=== PATIENT | male | born 1960 | race Hispanic/Latino ===

== ENCOUNTER 2017-06-11 23:19 | Inpatient (IN) | payer OTHER ==
[2017-06-11 23:23] VITALS: BMI 34.1
--- NOTE | 2017-06-11 23:47 | ED PDOC ---
Arrival/HPI - General Time Seen by Provider: 06/11/17 23:26 Historian: Patient - History of Present Illness Narrative History of Present Illness (Text): 06/11/17 23:45 56 year old male, whose past medical history includes bronchitis, presents to the emergency department complaining of worsening shortness of breath associated with a cough, chest pain, and headaches for the past 2 days. Patient reports these are similar symptoms to his past bronchitis diagnosis. He states he was coming home from work when these symptoms began to develop. Patient reports when he coughs associated symptoms include chest pain, shortness of breath, and frontal headaches. He states he has taken Tylenol and Nyquil with no relief. He states the headache started two days ago and have worsened but no sinus congestion. Patient denies any current medication, fever, chills, chest pain, nausea, vomiting, diarrhea, urinary symptoms, back pain, neck pain, dizziness, or any other complaints. PMD: Dr. Hart Time/Duration: Other (2 days) Symptom Onset: Gradual Symptom Course: Worsening Activities at Onset: Light Context: Home Past Medical History - Provider Review Nursing Documentation Reviewed: Yes Family/Social History - Physician Review Nursing Documentation Reviewed: Yes Family/Social History: No Known Family HX Allergies/Home Meds Allergies/Adverse Reactions: Allergies No Known Allergies Allergy (Verified 06/11/17 23:23) Home Medications: Home Meds Medication Instructions Recorded Confirmed No Known Home Med 06/11/17 06/11/17 Review of Systems - Physician Review All systems were reviewed & negative as marked: Yes - Review of Systems Constitutional: Fatigue. absent: Fevers, Other (Chills) ENT: absent: Sinus Congestion Respiratory: SOB, Cough Cardiovascular: Chest Pain Gastrointestinal: absent: Diarrhea, Nausea, Vomiting Genitourinary Male: absent: Dysuria, Frequency, Hematuria Musculoskeletal: absent: Back Pain, Neck Pain Neurological: Headache. absent: Dizziness, Focal Weakness Physical Exam Vital Signs Reviewed: Yes Vital Signs Temp Pulse Resp BP Pulse Ox 06/12/17 00:42 100.8 F H 86 19 132/69 99 06/12/17 00:20 101.5 F H 06/11/17 23:35 101.5 F H 96 H 18 121/83 96 06/11/17 23:30 21 96 Temperature: Febrile Blood Pressure: Normal Pulse: Tachycardic Respiratory Rate: Tachypneic (RR of 21) Appearance: Positive for: Ill-Appearing, Other (morbidly obese) Pain Distress: None Mental Status: Positive for: Alert and Oriented X 3 - Systems Exam Head: Present: Atraumatic, Normocephalic Pupils: Present: PERRL Conjunctiva: Present: Normal Mouth: Present: Moist Mucous Membranes Pharnyx: Present: Normal. No: ERYTHEMA, EXUDATE Neck: Present: Normal Range of Motion. No: MIDLINE TENDERNESS Respiratory/Chest: Present: Clear to Auscultation, Decreased Breath Sounds ( Diminished breath sounds on the bases (L>R)). No: Respiratory Distress, Accessory Muscle Use Cardiovascular: Present: Regular Rate and Rhythm, Normal S1, S2. No: Murmurs Abdomen: Present: Normal Bowel Sounds. No: Tenderness, Distention, Peritoneal Signs Back: Present: Normal Inspection Upper Extremity: Present: Normal Inspection. No: Cyanosis, Edema Lower Extremity: Present: Normal Inspection. No: Edema Neurological: Present: GCS=15, CN II-XII Intact, Speech Normal Skin: Present: Warm, Normal Color, Diaphoretic. No: Rashes Psychiatric: Present: Alert, Oriented x 3, Normal Insight, Normal Concentration Medical Decision Making ED Course and Treatment: 06/11/17 23:45 Impression: 56 year old male presents complaining of similar past symptoms of bronchitis. Symptoms include coughing associated with shortness of breath, chest pain, and frontal headache. Differential: pneumonia vs bronchitis Plan: -- VBG -- CT Brain w/o Contrast -- CT Sinuses w/o contrast -- Labs -- Chest X-ray Two Views -- Atrovent -- Robitussin -- SOLU-Medrol -- IV Fluids -- Tylenol -- Xopenex -- Blood Culture -- Urine Culture -- Urinalysis -- Reassess and disposition Progress Notes: 06/12/17 00:17 Code Sepsis called. Patient's Lactate level showed 3.3 with 2 SIRS criteria ( fever and RR > 20) 06/12/17 00:19 CXR Impression: As read by me, possible retrocardiac infiltrate. EXAM: CT Head Without Intravenous Contrast Dictated and Authenticated by: Vargas Garcia MD 06/12/2017 12:24 AM IMPRESSION: 1. No acute intracranial abnormality. 2. See sinus CT report for additional details. 3. Incidental/non-acute findings are described above. EXAM: CT Maxillofacial Sinuses Without Intravenous Contrast Dictated and Authenticated by: Vargas Garcia MD 06/12/2017 12:27 AM IMPRESSION: 1. No acute findings. 2. Non-acute findings are described above 06/12/17 00:29 Patient with fever and tachypnea with lactic acidosis, concerning for sepsis. CXR as noted with possible pneumonia. Patient started on maxipime and code sepsis protocol followed for IVF. Given lactic acidosis with fever, will admit for iv antibiotics and follow blood cultures. Case discussed with Dr. Gomes who is aware and agrees with the plan. Accepts patient onto her service. Patient will be admitted to med-surg for Pneumonia. Will add zithromax for atypical coverage. - Lab Interpretations Lab Results: 06/11/17 23:30 06/11/17 23:30 Lab Results 06/11/17 23:30: Influenza Typ A,B (EIA) Negative for flu a/b 06/11/17 23:30: Sodium 138, Chloride 99, Potassium 4.3, Carbon Dioxide 28, Anion Gap 15, BUN 19, Creatinine 1.0, Est GFR ( Amer) > 60, Est GFR (Non- Af Amer) > 60, Random Glucose 153 H, Calcium 9.1, Phosphorus 3.2, Magnesium 1.9 , Total Bilirubin 1.1, AST 66 H, ALT 74 H, Alkaline Phosphatase 63, Lactate Dehydrogenase 865 H, Total Creatine Kinase 79, Troponin I 0.01, NT-Pro-B Natriuret Pep 33.2, Total Protein 7.7, Albumin 4.2, Globulin 3.5, Albumin/ Globulin Ratio 1.2, Lipase 93 06/11/17 23:30: pO2 48, VBG pH 7.33, VBG pCO2 51.0, VBG HCO3 26.9, VBG Total CO2 28.5 H, VBG O2 Sat (Calc) 85.3 H, VBG Base Excess 0.2, VBG Potassium 3.9, Sodium 137.0, Chloride 101.0, Glucose 159 H, Lactate 3.3 H, FiO2 21.0, Venous Blood Potassium 3.9 06/11/17 23:30: PT 14.8 H, INR 1.35 H, APTT 32.4 06/11/17 23:30: WBC 6.3, RBC 4.96, Hgb 15.8, Hct 45.4, MCV 91.5, MCH 31.9, MCHC 34.8, RDW 13.4, Plt Count 144, MPV 10.9, Gran % 71.3 H, Lymph % (Auto) 18.6 L, [place] % (Auto) 9.5 H, Eos % (Auto) 0.0 L, Baso % (Auto) 0.6, Gran # 4.51, Lymph # 1.2, [place] # 0.6, Eos # 0.0, Baso # 0.04 I have reviewed the lab results: Yes - RAD Interpretation Radiology Orders: 06/11/17 23:47 CHEST TWO VIEWS (PA/LAT) [RAD] Stat 06/11/17 23:48 Brain [HEAD W/O CONTRAST] [CT] Stat SINUSES W/O CONTRAST [CT] Stat - EKG Interpretation EKG Interpretation (Text): 06/12/17 01:01 NSR @ 98 with PACs; normal intervals; left axis deviation; no ST/T changes. Interpreted by ED Physician: Yes Type: 12 lead EKG Comparison: No previous EKG avail. - Medication Orders Current Medication Orders: Sodium Chloride (Sodium Chloride 0.9%) 3,240 mls @ 1,000 mls/hr IV .Q3H15M STA Stop: 06/12/17 03:02 Last Admin: 06/12/17 00:25 Dose: 1,000 mls/hr eMAR Start Stop Document 06/12/17 00:25 RD (Rec: 06/12/17 00:33 RD [id number]) Intravenous Solution Start Date 06/12/17 Start Time 00:25 End Date 06/12/17 End time 03:40 Total Infusion Time 195 Cefepime HCl (Maxipime 2gm) 2 gm in 100 mls @ 100 mls/hr IVPB STAT STA PRN Reason: Protocol Stop: 06/12/17 01:23 Last Admin: 06/12/17 00:38 Dose: 100 mls/hr eMAR Start Stop Document 06/12/17 00:38 RD (Rec: 06/12/17 00:38 RD [id number]) Intravenous Solution Start Date 06/12/17 Start Time 00:38 End Date 06/12/17 End time 01:38 Total Infusion Time 60 Azithromycin (Zithromax 500mg In Ns) 500 mg in 250 mls @ 167 mls/hr IVPB STAT STA PRN Reason: Protocol Stop: 06/12/17 02:01 Discontinued Medications Acetaminophen (Tylenol 325mg Tab) 975 mg PO STAT STA Stop: 06/11/17 23:50 Last Admin: 06/12/17 00:20 Dose: 975 mg MAR Pain/Vitals Document 06/12/17 00:20 RD (Rec: 06/12/17 00:29 RD [id number]) Vitals Temperature (97.6 F-99.6 F) 101.5 F Temperature Source Oral Guaifenesin (Robitussin) 600 mg PO ONCE STA Stop: 06/11/17 23:50 Last Admin: 06/12/17 00:20 Dose: 600 mg Sodium Chloride (Sodium Chloride 0.9%) 2,000 mls @ 1,000 mls/hr IV .Q2H STA Stop: 06/12/17 01:47 Ipratropium [place] (Atrovent) 0.5 mg IH STAT STA Stop: 06/11/17 23:50 Last Admin: 06/12/17 00:20 Dose: 0.5 mg Levalbuterol HCl (Xopenex) 1.25 mg IH STAT STA Stop: 06/11/17 23:50 Last Admin: 06/12/17 00:20 Dose: 1.25 mg Levalbuterol HCl (Xopenex) 1.25 mg IH STAT STA Stop: 06/11/17 23:50 Last Admin: 06/12/17 00:39 Dose: 1.25 mg Methylprednisolone (Solu-Medrol) 125 mg IVP STAT STA Stop: 06/11/17 23:50 Last Admin: 06/12/17 00:20 Dose: 125 mg IVP Administration Document 06/12/17 00:20 RD (Rec: 06/12/17 00:31 RD [id number]) Charges for Administration # of IVP Administrations 1 - Scribe Statement The provider has reviewed the documentation as recorded by the Scribe Keshawn Wells Provider Scribe Attestation: All medical record entries made by the Scribe were at my direction and personally dictated by me. I have reviewed the chart and agree that the record accurately reflects my personal performance of the history, physical exam, medical decision making, and the department course for this patient. I have also personally directed, reviewed, and agree with the discharge instructions and disposition. Disposition/Present on Arrival - Present on Arrival Any Indicators Present on Arrival: No - Disposition Have Diagnosis and Disposition been Completed?: Yes Diagnosis: Pneumonia, Sepsis Disposition: HOSPITALIZED Disposition Time: 12:30 Patient Plan: Admission Condition: FAIR Discharge Instructions (ExitCare): Sepsis (ED)
[2017-06-11] MEDS ORDERED: Sodium Chloride 0.9% 2,000 ML IV STA (23:48)
[2017-06-11] MEDS ORDERED: guaiFENesin 200 mg/10 ml Syrup UD PO STA (23:49)
[2017-06-11] MEDS ORDERED: Ipratropium 0.02% Inhal Soln (0.5 mg/2.5 ml) UD IH STA (23:49)
[2017-06-11] MEDS ORDERED: Levalbuterol 1.25 MG/3 ML Inhal Soln UD IH STA ×2 (23:49)
[2017-06-12 00:03] LABS: BASO # 0.04 K/mm3 (0.0-2.0); BASO % 0.6 % (0.0-3.0); GRAN # 4.51 (1.4-6.5); GRAN % 71.3 % (50.0-68.0); HEMATOCRIT 45.4 % (42.0-52.0); LYMPH # 1.2 (1.2-3.4); LYMPH % 18.6 % (22.0-35.0); MEAN CELL VOLUME 91.5 fl (80.0-105.0); MEAN CORPUSCULAR HEMOGLOBIN 31.9 pg (25.0-35.0); MEAN CORPUSCULAR HGB CONC 34.8 g/dl (31.0-37.0); MEAN PLATELET VOLUME 10.9 fl (7.0-11.0); MONO # 0.6 (0.1-0.6); MONO % 9.5 % (1.0-6.0); RED CELL DISTRIBUTION WIDTH 13.4 % (11.5-14.5); WHITE BLOOD COUNT 6.3 10^3/ul (4.5-11.0)
[2017-06-12 00:12] LABS: VENOUS BLOOD GAS BASE EXCESS 0.2 mmol/L (0.0-2.0); VENOUS BLOOD PH 7.33 (7.32-7.43)
[2017-06-12 00:13] LABS: INR 1.35 (0.93-1.08); PARTIAL THROMBOPLASTIN TIME 32.4 Seconds (25.1-36.5)
[2017-06-12] MEDS ORDERED: SODIUM CHLORIDE 0.9% IV STA (00:17)
[2017-06-12 00:22] LABS: ALB/GLOB RATIO 1.2 (1.1-1.8); ALKALINE PHOSPHATASE 63 U/L (38-126); ALT/SGPT 74 U/L (7-56); AST/SGOT 66 U/L (17-59); BILIRUBIN,TOTAL 1.1 mg/dL (0.2-1.3); BLOOD UREA NITROGEN 19 mg/dL (7-21); CALCIUM 9.1 mg/dL (8.4-10.5); CARBON DIOXIDE 28 mmol/L (21-33); CHLORIDE 99 mmol/L (98-107); GFR AFRICAN-AMERICAN > 60; GLUCOSE,RANDOM 153 mg/dL (70-110); LIPASE 93 U/L (23-300); MAGNESIUM 1.9 mg/dL (1.7-2.2); PHOSPHOROUS 3.2 mg/dL (2.5-4.5); POTASSIUM 4.3 mmol/L (3.6-5.0); SODIUM 138 mmol/L (132-148); TOTAL PROTEIN 7.7 g/dL (5.8-8.3)
[2017-06-12] MEDS ORDERED: Cefepime IV 2 gm in NS 2 GM/100 ML BAG IVPB STA (00:24)
--- NOTE | 2017-06-12 00:25 | CT ---
EXAM: CT Head Without Intravenous Contrast CLINICAL HISTORY: 56 years old, male; Pain; Headache TECHNIQUE: Axial computed tomography images of the head/brain without intravenous contrast. All CT scans at this facility use one or more dose reduction techniques, viz.: automated exposure control; ma/kV adjustment per patient size (including targeted exams where dose is matched to indication; i.e. head); or iterative reconstruction technique. COMPARISON: No relevant prior studies available. FINDINGS: Brain: Mild atrophy. No intracranial hemorrhage. No mass. No definite edema. Ventricles: No hydrocephalus. Bones/joints: No calvarial fracture. Mastoid air cells: No mastoid effusion. IMPRESSION: 1. No acute intracranial abnormality. 2. See sinus CT report for additional details. 3. Incidental/non-acute findings are described above.
[2017-06-12 00:27] LABS: TROPONIN I 0.01 ng/mL
--- NOTE | 2017-06-12 00:28 | CT ---
EXAM: CT Maxillofacial Sinuses Without Intravenous Contrast CLINICAL HISTORY: 56 years old, male; Pain; Headache; Additional info: Headache, fever TECHNIQUE: Computed tomography images of the maxillofacial sinuses without intravenous contrast. All CT scans at this facility use one or more dose reduction techniques, viz.: automated exposure control; ma/kV adjustment per patient size (including targeted exams where dose is matched to indication; i.e. head); or iterative reconstruction technique. Coronal and sagittal reformatted images were created and reviewed. COMPARISON: No relevant prior studies available. FINDINGS: Maxillary sinuses: Minimal mucosal thickening. No air-fluid levels. Sphenoid sinuses: Unremarkable. No air-fluid levels. Frontal sinuses: Unremarkable. No air-fluid levels. Ethmoid air cells: Minimal to mild mucosal thickening. No air-fluid levels. Nasal cavity/septum: Septal deviation to RIGHT. Bones/joints: No acute fracture. Soft tissues: Dermal calcifications. Orbits: Unremarkable as visualized. IMPRESSION: 1.No acute findings. 2.Non-acute findings are described above.
[2017-06-12] MEDS ORDERED: Azithromycin 500MG/NS 250ml 500 MG/250 ML BAG IVPB STA (00:32)
[2017-06-12 03:00] LABS: VENOUS BLOOD GAS BASE EXCESS -0.3 mmol/L (0.0-2.0)
--- NOTE | 2017-06-12 08:55 | RAD ---
HISTORY: fever, cough COMPARISON: 07/09/2013 TECHNIQUE: Chest PA and lateral FINDINGS: LUNGS: Mild vascular congestion. No definite infiltrate PLEURA: No significant pleural effusion identified. No pneumothorax apparent. CARDIOVASCULAR: Normal. OSSEOUS STRUCTURES: No significant abnormalities. VISUALIZED UPPER ABDOMEN: Normal. OTHER FINDINGS: None. IMPRESSION: No definite infiltrate
[2017-06-12 09:02] LABS: PH,URINE 5.5 (4.7-8.0); URINE BILIRUBIN NEGATIVE (NEGATIVE); URINE BLOOD NEGATIVE (NEGATIVE); URINE GLUCOSE (UA) NEGATIVE (NEGATIVE); URINE KETONE 15 mg/dL (NEGATIVE); URINE LEUKOCYTE ESTERASE NEGATIVE Leu/uL (NEGATIVE); URINE PROTEIN TRACE mg/dL (<30 mg/dL)
[2017-06-12 09:13] LABS: URINE APPEARANCE CLEAR (CLEAR); URINE COLOR YELLOW (YELLOW)
[2017-06-12 09:18] LABS: URINE RBC 0 - 2 /hpf (0-2); URINE WBC 0 - 2 /hpf (0-6)
[2017-06-12] MEDS: cefTRIAXone 1 gm 1 GM/100 ML BAG IVPB SCH (11:44)
[2017-06-12] MEDS: Azithromycin 500MG/NS 250ml 500 MG/250 ML BAG IVPB SCH (11:45)
[2017-06-12] MEDS: Albuterol-Ipratrop 3 mg / 0.5 (3 ml) UD IH SCH ×2 (13:35→20:01)
--- NOTE | 2017-06-12 16:57 | CT ---
PROCEDURE: CT Chest without contrast HISTORY: sob COMPARISON: None. TECHNIQUE: Contiguous axial images were obtained through the chest without intravenous contrast enhancement. Sagittal and coronal reconstructions were performed. Radiation dose (DLP): 771.01 mGy-cm. This CT exam was performed using one or more of the following dose reduction techniques: Automated exposure control, adjustment of the mA and/or kV according to patient size, and/or use of iterative reconstruction technique. FINDINGS: LUNGS: Clear lungs. Visualized airway clear. MEDIASTINUM: Unremarkable thoracic aorta. No aneurysm. Normal sized heart. Main pulmonary artery unremarkable. No vascular congestion. No lymphadenopathy. PLEURA: No pleural fluid. No pneumothorax. BONES: No fracture. No destructive lesion. UPPER ABDOMEN: Grossly unremarkable. OTHER FINDINGS: None. IMPRESSION: No evidence of pneumonia or mass lesion in the lungs.
[2017-06-12] MEDS: Apap-Butalbital-Caffeine 325-50-40mg Tab PO PRN (19:32)
[2017-06-13] MEDS: Albuterol-Ipratrop 3 mg / 0.5 (3 ml) UD IH SCH ×4 (01:10→20:25)
[2017-06-13] MEDS: Promethazine/Cod 6.25mg-10mg/5ml Syr UD PO PRN ×3 (05:16→17:41)
[2017-06-13] MEDS: Apap-Butalbital-Caffeine 325-50-40mg Tab PO PRN ×2 (05:16→16:50)
[2017-06-13] MEDS: Pantoprazole 40 mg EC Tab PO SCH (05:41)
--- NOTE | 2017-06-13 09:35 | CARD ---
APPROVED REPORT EKG Measurement Heart [id number] <Conclusion> Sinus rhythm with premature atrial complexes Left axis deviation RVCD No change
[2017-06-13] MEDS: cefTRIAXone 1 gm 1 GM/100 ML BAG IVPB SCH (10:16)
--- NOTE | 2017-06-13 11:03 | CP.PCM.CON ---
History of Present Illness - History of Present Illness History of Present Illness: General Surgery - Dr Salazar 56 yo M w hx of bronchitis, presented to ED yesterday w/ fevers, cough, SOB and chest pain x3days. Pt states the symptoms are very similar to previous episode of bronchitis last year. He was admitted to the hospital and started on IV Abx. Surgery was consulted for a sebaceous cyst. Pt. states he noticed the cyst on the lower back a few weeks ago. He states that it was very large at the time and "ruptured" but that since then it has become enlarged again. He denies any further drainage from the area or any other symptoms related to the cyst. On ROS Pt admits to mild Nausea, Fevers, Chills, SOB, Chest pain, Cough, Headache. He denies any Vomiting, Diarrhea, Constipation, Dysuria, Hematuria, Abdominal pain. PMH: bronchitis PSH: Left knee surgey Former smoker NKDA Review of Systems - Review of Systems All systems: reviewed and no additional remarkable complaints except (as per HPI ) Past Patient History - Past Social History Smoking Status: Former Smoker - CARDIAC Hx Cardiac Disorders: No - PULMONARY Hx Bronchitis: Yes - NEUROLOGICAL Hx Neurological Disorder: No - HEENT Hx HEENT Problems: No - RENAL Hx Chronic Kidney Disease: No - ENDOCRINE/METABOLIC Hx Endocrine Disorders: No - HEMATOLOGICAL/ONCOLOGICAL Hx Blood Disorders: No - INTEGUMENTARY Hx Dermatological Problems: No - MUSCULOSKELETAL/RHEUMATOLOGICAL Hx Falls: No Other/Comment: Left Knee Replacement - GASTROINTESTINAL Hx Gastrointestinal Disorders: No - GENITOURINARY/GYNECOLOGICAL Hx Genitourinary Disorders: No - PSYCHIATRIC Hx Psychophysiologic Disorder: No Hx Substance Use: No - SURGICAL HISTORY Hx Joint Replacement: Yes (Left Knee) - ANESTHESIA Hx Anesthesia: No Meds Allergies/Adverse Reactions: Allergies Allergy/AdvReac Type Severity Reaction Status Date / Time No Known Allergies Allergy Verified 06/11/17 23:23 - Medications Medications: Current Medications Acetaminophen (Tylenol 325mg Tab) 650 mg PO Q4H PRN PRN Reason: Fever >100.4 F Last Admin: 06/13/17 10:51 Dose: 650 mg Acetaminophen/Butalbital/Caffeine (Fioricet) 2 tab PO Q6H PRN PRN Reason: Headache Last Admin: 06/13/17 05:16 Dose: 2 tab Albuterol/Ipratropium (Duoneb 3 Mg/0.5 Mg (3 Ml) Ud) 3 ml IH [id number] [facility] Last Admin: 06/13/17 07:09 Dose: 3 ml Ceftriaxone Sodium (Rocephin 1 Gram Ivpb) 1 gm in 100 mls @ 100 mls/hr IVPB DAILY FRED PRN Reason: Protocol Last Admin: 06/13/17 10:16 Dose: 100 mls/hr Azithromycin (Zithromax 500mg In Ns) 500 mg in 250 mls @ 167 mls/hr IVPB DAILY FRED PRN Reason: Protocol Last Admin: 06/12/17 11:45 Dose: 167 mls/hr Ondansetron HCl (Zofran Inj) 4 mg IVP Q6H PRN PRN Reason: Nausea/Vomiting Pantoprazole Sodium (Protonix Ec Tab) 40 mg PO 0630 [facility] Last Admin: 06/13/17 05:41 Dose: 40 mg Promethazine HCl/Codeine (Phenergan/Codeine Oral Syrup) 5 ml PO Q6H PRN PRN Reason: Cough and congestion Last Admin: 06/13/17 05:16 Dose: 5 ml Physical Exam - Constitutional Appears: No Acute Distress - Head Exam Head Exam: ATRAUMATIC, NORMAL INSPECTION, NORMOCEPHALIC - Eye Exam Eye Exam: EOMI, Normal appearance - Respiratory Exam Respiratory Exam: NORMAL BREATHING PATTERN. absent: Respiratory Distress - Back Exam Additional comments: sebcaeous cyst lower back with slight erythema, minimal tenderness, non-draining - Neurological Exam Neurological exam: Alert, Oriented x3 - Psychiatric Exam Psychiatric exam: Normal Affect, Normal Mood - Skin Skin Exam: Dry, Intact Results - Vital Signs Recent Vital Signs: Last Vital Signs Temp 98.1 F 06/13/17 07:30 Pulse 83 06/13/17 07:30 Resp 20 06/13/17 07:30 BP 130/93 H 06/13/17 07:30 Pulse Ox 96 06/13/17 07:30 - Labs Result Diagrams: 06/11/17 23:30 06/11/17 23:30 Assessment & Plan - Assessment and Plan (Free Text) Assessment: 56yo M w/ bronchitis, surgery consulted for sebaceous cyst -Cyst does not appear to be acutely infected and not likely to be source of Fevers, consider evolving pneumonia -Recc. elective excision of cyst, pt. requests this to be done while inpatient -As pt. currently being treated for pulm. infection will plan for cyst excision just prior to D/C DW Dr Martin Lees PGY3
[2017-06-13] MEDS: Azithromycin 500MG/NS 250ml 500 MG/250 ML BAG IVPB SCH (12:33)
[2017-06-13] MEDS ORDERED: Vancomycin 1gm in NS 250ml 250 ML IVPB SCH (14:45)
[2017-06-13] MEDS: Cefepime 0.5 GM in Sodium Chloride 0.9% 100 ML IVPB SCH ×2 (16:42→21:44)
[2017-06-13] MEDS: Vancomycin 1gm in NS 250ml 1 GM/250 ML BAG IVPB SCH (17:42)
--- NOTE | 2017-06-13 19:26 | PN ---
DATE: SUBJECTIVE: Patient is 56 years old who was initially admitted with cough, congestion, and shortness of breath. He was started on IV antibiotic this morning. When I saw, he spiked fever of 102 and he still has cough and congestion. Denies any nausea or vomiting. He does have abscess in his back that seems to be infected sebaceous cyst and already seems to be discharging pussy fluid. PHYSICAL EXAMINATION: VITAL SIGNS: He has temp of 101.4, pulse 83, respirations 16, blood pressure 135/78. LUNGS: Bilateral fair airflow. No rhonchi or crackles. HEART: S1 and S2 audible. ABDOMEN: Soft, obese, nontender. No rebound. No guarding. NEUROLOGICAL: The patient is awake, alert, oriented, able to communicate. LABORATORY DATA: Urinalysis is unremarkable. Flu test is negative. CT scan of his chest negative for pneumonia. ASSESSMENT: 1. Asthmatic bronchitis. 2. Fever, etiology unclear. 3. Infected sebaceous cyst. 4. Hypertension. PLAN: We will continue him on nebulizer treatment. We will start him on cefepime and discontinue Rocephin. We will get ID consult by Dr. Bhatt. Surgical consult has been called also to evaluate and his abscess might need I and D. We will continue him on Zithromax and will reevaluate patient in a.m. Caden Gomes MD
[2017-06-14] MEDS: Albuterol-Ipratrop 3 mg / 0.5 (3 ml) UD IH SCH ×4 (01:33→19:21)
[2017-06-14] MEDS: Promethazine/Cod 6.25mg-10mg/5ml Syr UD PO PRN ×3 (01:48→19:02)
[2017-06-14] MEDS: Apap-Butalbital-Caffeine 325-50-40mg Tab PO PRN ×3 (01:48→19:02)
[2017-06-14] MEDS: Vancomycin 1gm in NS 250ml 1 GM/250 ML BAG IVPB SCH ×2 (03:18→14:43)
[2017-06-14] MEDS: Cefepime 0.5 GM in Sodium Chloride 0.9% 100 ML IVPB SCH (06:07)
[2017-06-14] MEDS: Pantoprazole 40 mg EC Tab PO SCH (06:08)
--- NOTE | 2017-06-14 07:07 | CP.PCM.PN ---
Subjective - Date & Time of Evaluation Date of Evaluation: 06/14/17 Time of Evaluation: 07:05 - Subjective Subjective: General Surgery - DR. Salazar PT S&E. IVONNE. Pt remained afebrile through the night. He states his cough is slightly better today. Objective - Vital Signs/Intake and Output Vital Signs (last 24 hours): Temp Pulse Resp BP Pulse Ox 99.2 F 99 H 20 119/80 94 L 06/13/17 16:00 06/13/17 16:00 06/13/17 16:00 06/13/17 16:00 06/13/17 16:00 Intake and Output: 06/14/17 06/14/17 06:59 18:59 Intake Total 600 Balance 600 - Medications Medications: Current Medications Acetaminophen (Tylenol 325mg Tab) 650 mg PO Q4H PRN PRN Reason: Fever >100.4 F Last Admin: 06/13/17 10:51 Dose: 650 mg Acetaminophen/Butalbital/Caffeine (Fioricet) 2 tab PO Q6H PRN PRN Reason: Headache Last Admin: 06/14/17 01:48 Dose: 2 tab Albuterol/Ipratropium (Duoneb 3 Mg/0.5 Mg (3 Ml) Ud) 3 ml IH [id number] [facility]ED Last Admin: 06/14/17 01:33 Dose: 3 ml Azithromycin (Zithromax 500mg In Ns) 500 mg in 250 mls @ 167 mls/hr IVPB DAILY FRED PRN Reason: Protocol Last Admin: 06/13/17 12:33 Dose: 167 mls/hr Cefepime HCl 0.5 gm/ Sodium (Chloride) 100 mls @ 100 mls/hr IVPB Q8H FRED PRN Reason: Protocol Last Admin: 06/14/17 06:07 Dose: 100 mls/hr Vancomycin HCl (Vancomycin 1gm) 1 gm in 250 mls @ 167 mls/hr IVPB Q12H FRED PRN Reason: Protocol Last Admin: 06/14/17 03:18 Dose: 167 mls/hr Ondansetron HCl (Zofran Inj) 4 mg IVP Q6H PRN PRN Reason: Nausea/Vomiting Pantoprazole Sodium (Protonix Ec Tab) 40 mg PO 0630 [facility] Last Admin: 06/14/17 06:08 Dose: 40 mg Promethazine HCl/Codeine (Phenergan/Codeine Oral Syrup) 5 ml PO Q6H PRN PRN Reason: Cough and congestion Last Admin: 06/14/17 01:48 Dose: 5 ml - Labs Labs: PT 14.8 SECONDS (9.4-12.5) H 06/11/17 23:30 INR 1.35 (0.93-1.08) H 06/11/17 23:30 APTT 32.4 Seconds (25.1-36.5) 06/11/17 23:30 - Constitutional Appears: No Acute Distress - Head Exam Head Exam: ATRAUMATIC, NORMAL INSPECTION, NORMOCEPHALIC - Respiratory Exam Respiratory Exam: NORMAL BREATHING PATTERN. absent: Respiratory Distress - Back Exam Additional comments: sebaceous cyst lower back, slight ecchymosis surrounding, no signs of infected cyst - Neurological Exam Neurological Exam: Alert, Oriented x3 - Psychiatric Exam Psychiatric exam: Normal Affect, Normal Mood - Skin Skin Exam: Dry, Intact Assessment and Plan - Assessment and Plan (Free Text) Assessment: 56yo M w/ bronchitis, surgery consulted for sebaceous cyst -Afebrile overnight -Continue Abx as per primary -Will plan for Cyst excision prior to Discharge, possible Thursday if pt. continues to improve today DW Dr Martin Lees PGY3
[2017-06-14 07:25] LABS: BASO # 0.07 K/mm3 (0.0-2.0); BASO % 0.9 % (0.0-3.0); EOS # 0.1 (0.0-0.7); EOS % 0.8 % (1.5-5.0); GRAN # 4.77 (1.4-6.5); GRAN % 61.2 % (50.0-68.0); HEMATOCRIT 40.3 % (42.0-52.0); LYMPH # 1.9 (1.2-3.4); MEAN CELL VOLUME 91.6 fl (80.0-105.0); MEAN CORPUSCULAR HEMOGLOBIN 30.7 pg (25.0-35.0); MEAN CORPUSCULAR HGB CONC 33.5 g/dl (31.0-37.0); MEAN PLATELET VOLUME 11.1 fl (7.0-11.0); MONO % 13.1 % (1.0-6.0); RED CELL DISTRIBUTION WIDTH 13.8 % (11.5-14.5); WHITE BLOOD COUNT 7.8 10^3/ul (4.5-11.0)
--- NOTE | 2017-06-14 13:12 | PN ---
DATE: SUBJECTIVE: The patient is a 56-year-old male seen and examined. Seems to be doing better today and seems to be afebrile. PHYSICAL EXAMINATION: VITAL SIGNS: Temperature is 96.4, pulse is 77, respirations are 17, and blood pressure is 108/69. LUNGS: Bilateral good airflow. No rhonchi or crackles. HEART: S1 and S2 audible. ABDOMEN: Soft, obese, and nontender. No rebound and no guarding. NEUROLOGIC: He is awake, alert, oriented, communicative, and ambulatory. LABORATORY DATA: WBC is 7.8, hemoglobin is 13.5, hematocrit is 42.3 and platelets are 164. Chemistry: There is no new lab available today. Urinalysis is unremarkable. Flu test is negative. DIAGNOSTIC DATA: CT scan of the chest is negative. He had infected sebaceous cyst in the mid back that seems to be draining and erythema seems to be improving. ASSESSMENT AND PLAN: 1. Asthmatic bronchitis. 2. Infected sebaceous cyst. 3. Hypertension. PLAN: So the plan is, the patient is currently on doxycycline and we will continue nebulizer treatment. He is on vancomycin 1 gram q. 12 hours. We reevaluate the patient in the morning, if he seems to be stable and improving, will be discharging home. Caden Gomes MD
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
[2017-06-14] MEDS: Azithromycin 500MG/NS 250ml 500 MG/250 ML BAG IVPB SCH (18:58)
[2017-06-15] MEDS: Vancomycin 1gm in NS 250ml 1 GM/250 ML BAG IVPB SCH ×2 (02:28→15:19)
[2017-06-15] MEDS: Albuterol-Ipratrop 3 mg / 0.5 (3 ml) UD IH SCH ×4 (02:50→20:39)
[2017-06-15] MEDS: Apap-Butalbital-Caffeine 325-50-40mg Tab PO PRN ×3 (04:50→17:36)
[2017-06-15 07:10] LABS: BASO # 0.07 K/mm3 (0.0-2.0); BASO % 0.8 % (0.0-3.0); EOS # 0.2 (0.0-0.7); EOS % 2.2 % (1.5-5.0); GRAN # 5.52 (1.4-6.5); GRAN % 63.3 % (50.0-68.0); HEMATOCRIT 40.3 % (42.0-52.0); LYMPH # 2.1 (1.2-3.4); LYMPH % 23.5 % (22.0-35.0); MEAN CELL VOLUME 91.8 fl (80.0-105.0); MEAN CORPUSCULAR HEMOGLOBIN 30.8 pg (25.0-35.0); MEAN CORPUSCULAR HGB CONC 33.5 g/dl (31.0-37.0); MEAN PLATELET VOLUME 11.3 fl (7.0-11.0); MONO # 0.9 (0.1-0.6); MONO % 10.2 % (1.0-6.0); RED CELL DISTRIBUTION WIDTH 13.8 % (11.5-14.5); WHITE BLOOD COUNT 8.7 10^3/ul (4.5-11.0)
[2017-06-15 07:31] LABS: ALB/GLOB RATIO 1.2 (1.1-1.8); ALKALINE PHOSPHATASE 65 U/L (38-126); ALT/SGPT 76 U/L (7-56); AST/SGOT 49 U/L (17-59); BILIRUBIN,TOTAL 0.7 mg/dL (0.2-1.3); BLOOD UREA NITROGEN 17 mg/dL (7-21); CARBON DIOXIDE 31 mmol/L (21-33); CHLORIDE 103 mmol/L (98-107); GFR AFRICAN-AMERICAN > 60; GLUCOSE,RANDOM 99 mg/dL (70-110); POTASSIUM 4.3 mmol/L (3.6-5.0); SODIUM 141 mmol/L (132-148); TOTAL PROTEIN 6.8 g/dL (5.8-8.3)
--- NOTE | 2017-06-15 08:07 | HP ---
HISTORY OF PRESENT ILLNESS: The patient is a 56-year-old, who states he was having cough, congestion, and headache. He states he felt like he had pneumonia that he had a similar feeling in the past. He took some medications at home with no significant relief. Complain of cough and congestion. He states he went to work on Thursday, but was feeling very lightheaded and tired. He stayed in bed on Thursday and Thursday, but yesterday could not take anymore and came to Emergency Room. PAST MEDICAL HISTORY: Significant for having pneumonia in the past. PAST SURGICAL HISTORY: Denies any surgery. MEDICATIONS: He is not taking any medication at home. SOCIAL HISTORY: He is engaged. His fiance by the bedside. He is ex-smoker, but currently smokes cigar and one cigar lasting for few days. REVIEW OF SYSTEMS: Generalized weakness with headache. PHYSICAL EXAMINATION GENERAL: He is awake, alert and oriented. Communicative. VITAL SIGNS: He is afebrile, pulse , respirations 22 and blood pressure 141/87. LUNGS: Bilateral fair airflow. Few expiratory rhonchi. HEART: S1 and S2 audible. ABDOMEN: Soft, obese and nontender. No rebound. No guarding. NEUROLOGIC: He is awake, alert, oriented and communicative. LABORATORY DATA: WBC 6.3, hemoglobin 15, hematocrit 45 and platelet 144. PT 14.8. INR 1.35. Chemistry: Sodium 138, potassium 4.3, chloride 99, CO2 28, BUN 19, creatinine 1.0 and blood sugar 153. AST 66, ALT 74, LDH is 865. Urinalysis shows ketones and urobilinogen serology flow test is negative. Had CT scan of the chest done. Has no evidence of pneumonia or mass lesion in the lung. His sinus CT scan shows no acute findings. ASSESSMENT: 1. Asthmatic bronchitis. 2. Generalized weakness. 3. Morbid obesity. 4. Active smoker. PLAN: The patient is currently on IV Rocephin and Zithromax. I will give him cough medication and Fioricet for headache. Start him on nebulizer treatment and if he stabilize and start to improve, we will discharge him in a.m. Caden Gomes MD [facility] # [id number]
--- NOTE | 2017-06-15 08:16 | CP.PCM.PN ---
Subjective - Date & Time of Evaluation Date of Evaluation: 06/15/17 Time of Evaluation: 08:14 - Subjective Subjective: General Surgery Progress Note for Dr. Salazar: Pt seen and examined at bedside. Pt denied any acute overnight events. Pt denied pain at site of cyst on back. Pt denied CP, SOB, nausea, vomiting, diarrhea, abdominal pain, fever, or chills. Objective - Vital Signs/Intake and Output Vital Signs (last 24 hours): Temp Pulse Resp BP Pulse Ox 99.9 F H 92 H 20 134/89 94 L 06/15/17 07:30 06/15/17 07:30 06/15/17 07:30 06/15/17 07:30 06/15/17 07:30 Intake and Output: 06/15/17 06/15/17 06:59 18:59 Intake Total 120 Balance 120 - Medications Medications: Current Medications Acetaminophen (Tylenol 325mg Tab) 650 mg PO Q4H PRN PRN Reason: Fever >100.4 F Last Admin: 06/13/17 10:51 Dose: 650 mg Acetaminophen/Butalbital/Caffeine (Fioricet) 2 tab PO Q6H PRN PRN Reason: Headache Last Admin: 06/15/17 04:50 Dose: 2 tab Albuterol/Ipratropium (Duoneb 3 Mg/0.5 Mg (3 Ml) Ud) 3 ml IH [id number] FRED Last Admin: 06/15/17 02:50 Dose: 3 ml Doxycycline Hyclate (Doryx) 100 mg PO Q12 FRED PRN Reason: Protocol Stop: 06/23/17 22:01 Last Admin: 06/14/17 21:31 Dose: 100 mg Vancomycin HCl (Vancomycin 1gm) 1 gm in 250 mls @ 167 mls/hr IVPB Q12H FRED PRN Reason: Protocol Last Admin: 06/15/17 02:28 Dose: 167 mls/hr Ondansetron HCl (Zofran Inj) 4 mg IVP Q6H PRN PRN Reason: Nausea/Vomiting Pantoprazole Sodium (Protonix Ec Tab) 40 mg PO 0630 FRED Last Admin: 06/14/17 06:08 Dose: 40 mg Promethazine HCl/Codeine (Phenergan/Codeine Oral Syrup) 5 ml PO Q6H PRN PRN Reason: Cough and congestion Last Admin: 06/14/17 19:02 Dose: 5 ml - Labs Labs: 06/15/17 06:30 06/15/17 06:30 PT 14.8 SECONDS (9.4-12.5) H 06/11/17 23:30 INR 1.35 (0.93-1.08) H 06/11/17 23:30 APTT 32.4 Seconds (25.1-36.5) 06/11/17 23:30 - Constitutional Appears: No Acute Distress - Head Exam Head Exam: ATRAUMATIC, NORMAL INSPECTION, NORMOCEPHALIC - Eye Exam Eye Exam: EOMI, Normal appearance - ENT Exam ENT Exam: Mucous Membranes Moist - Neck Exam Neck Exam: Full ROM. absent: Lymphadenopathy, Tenderness, Thyromegaly - Respiratory Exam Respiratory Exam: NORMAL BREATHING PATTERN. absent: Respiratory Distress - Cardiovascular Exam Cardiovascular Exam: RRR, +S1, +S2. absent: Gallop, Rubs, Murmur - GI/Abdominal Exam GI & Abdominal Exam: Soft. absent: Distended, Guarding, Tenderness, Mass, Rebound - Extremities Exam Extremities Exam: Normal Inspection - Back Exam Additional comments: cyst with sebaceous drainage on left thoracic paraspinal region. Minimal erythema, not TTP - Neurological Exam Neurological Exam: Awake, Oriented x3 - Skin Skin Exam: Dry, Intact, Normal Color, Warm Assessment and Plan - Assessment and Plan (Free Text) Assessment: 56yo M w/ bronchitis, surgery consulted for sebaceous cyst Plan: -Afebrile, no leukocytosis -Continue Abx per ID -Manually drained sebaceous cyst at bedside, no evidence of abscess Will sign off, f/u as needed as outpatient. Thank for allowing us to participate in the care of this patient. Discussed in detail with Dr. Salazar. Tonny Wilder, PGY1
--- NOTE | 2017-06-15 13:54 | CP.PCM.PN ---
Subjective - Date & Time of Evaluation Date of Evaluation: 06/15/17 Time of Evaluation: 12:10 - Subjective Subjective: Comfortable in bed, not in distress, still having intermittent low grade fevers , still feels lousy. Objective - Vital Signs/Intake and Output Vital Signs (last 24 hours): Temp Pulse Resp BP Pulse Ox 99.9 F H 92 H 20 134/89 94 L 06/15/17 07:30 06/15/17 07:30 06/15/17 07:30 06/15/17 07:30 06/15/17 07:30 Intake and Output: 06/15/17 06/15/17 06:59 18:59 Intake Total 120 Balance 120 - Medications Medications: Current Medications Acetaminophen (Tylenol 325mg Tab) 650 mg PO Q4H PRN PRN Reason: Fever >100.4 F Last Admin: 06/13/17 10:51 Dose: 650 mg Acetaminophen/Butalbital/Caffeine (Fioricet) 2 tab PO Q6H PRN PRN Reason: Headache Last Admin: 06/15/17 04:50 Dose: 2 tab Albuterol/Ipratropium (Duoneb 3 Mg/0.5 Mg (3 Ml) Ud) 3 ml IH [id number] FRED Last Admin: 06/15/17 08:29 Dose: 3 ml Doxycycline Hyclate (Doryx) 100 mg PO Q12 FRED PRN Reason: Protocol Stop: 06/23/17 22:01 Last Admin: 06/15/17 10:03 Dose: 100 mg Vancomycin HCl (Vancomycin 1gm) 1 gm in 250 mls @ 167 mls/hr IVPB Q12H FRED PRN Reason: Protocol Last Admin: 06/15/17 02:28 Dose: 167 mls/hr Ondansetron HCl (Zofran Inj) 4 mg IVP Q6H PRN PRN Reason: Nausea/Vomiting Pantoprazole Sodium (Protonix Ec Tab) 40 mg PO 0630 FRED Last Admin: 06/14/17 06:08 Dose: 40 mg Promethazine HCl/Codeine (Phenergan/Codeine Oral Syrup) 5 ml PO Q6H PRN PRN Reason: Cough and congestion Last Admin: 06/14/17 19:02 Dose: 5 ml - Labs Labs: 06/15/17 06:30 06/15/17 06:30 PT 14.8 SECONDS (9.4-12.5) H 06/11/17 23:30 INR 1.35 (0.93-1.08) H 06/11/17 23:30 APTT 32.4 Seconds (25.1-36.5) 06/11/17 23:30 - Constitutional Appears: Non-toxic - Head Exam Head Exam: NORMAL INSPECTION - ENT Exam ENT Exam: Mucous Membranes Moist - Neck Exam Neck Exam: absent: Lymphadenopathy, Meningismus - Respiratory Exam Respiratory Exam: Decreased Breath Sounds. absent: Rales, Wheezes - Cardiovascular Exam Cardiovascular Exam: +S1, +S2 - GI/Abdominal Exam GI & Abdominal Exam: Soft. absent: Tenderness Assessment and Plan - Assessment and Plan (Free Text) Plan: Assessment Sepsis due to infected sebaceous cyst on the back S/P I and D; also with acute bronchitis obesity with BMI 36 history of smoking history of bronchitis Plan Continue Vancomycin and Doxycycline; follow up cultures from the cyst; blood cx are negative reviewed CXR and CT chest patient to be started on steroids will monitor clinically discussed with Dr. Gomes
[2017-06-15] MEDS: Promethazine/Cod 6.25mg-10mg/5ml Syr UD PO PRN (17:36)
--- NOTE | 2017-06-15 21:38 | PN ---
DATE: SUBJECTIVE: The patient is a 56-year-old seen and examined, developed low grade fever this morning, still has cough and congestion, complaining of headache. PHYSICAL EXAMINATION: VITAL SIGNS: He has temperature of 99.7, pulse 86, respirations 20, blood pressure 138/85. LUNGS: Bilateral fair airflow. No rhonchi or crackles. HEART: S1 and S2 audible. ABDOMEN: Soft, obese, and nontender. No rebound, no guarding. NEUROLOGIC: He is awake, alert, oriented, and able to communicate. LABORATORY EXAMINATION: WBC is 8.7, hemoglobin is 13.5, hematocrit is 40.3, and platelets of 193. Chemistry: Sodium 141, potassium 4.3, chloride 103, CO2 of 31, BUN 17, creatinine 1.0, and blood sugar of 99. ALT is 76. Urine analysis is unremarkable. Flu test is negative. HIV test is negative. ASSESSMENT: 1. Fever, etiology unknown. 2. Infected sebaceous cyst. 3. Hypertension. 4. Morbid obesity. PLAN: We will continue the patient on current medications. We will monitor him overnight. If he remains afebrile in the next 24 hours, we will make discharge plan. Caden Gomes MD
[2017-06-16] MEDS: Albuterol-Ipratrop 3 mg / 0.5 (3 ml) UD IH SCH ×4 (02:21→20:53)
[2017-06-16] MEDS: Vancomycin 1gm in NS 250ml 1 GM/250 ML BAG IVPB SCH ×2 (03:43→16:00)
[2017-06-16] MEDS: Apap-Butalbital-Caffeine 325-50-40mg Tab PO PRN ×2 (03:56→13:49)
[2017-06-16] MEDS: Pantoprazole 40 mg EC Tab PO SCH (05:47)
[2017-06-16] MEDS: Promethazine/Cod 6.25mg-10mg/5ml Syr UD PO PRN (09:05)
--- NOTE | 2017-06-16 12:38 | CP.PCM.PN ---
Subjective - Date & Time of Evaluation Date of Evaluation: 06/16/17 Time of Evaluation: 11:20 - Subjective Subjective: Still with SOB when talking, no fevers overnight, no chest pain, no diarrhea, no nausea. Objective - Vital Signs/Intake and Output Vital Signs (last 24 hours): Temp Pulse Resp BP Pulse Ox 99.7 F H 86 20 138/85 93 L 06/15/17 16:00 06/15/17 16:00 06/15/17 16:00 06/15/17 16:00 06/15/17 16:00 Intake and Output: 06/16/17 06/16/17 06:59 18:59 Intake Total 1020 Balance 1020 - Medications Medications: Current Medications Acetaminophen (Tylenol 325mg Tab) 650 mg PO Q4H PRN PRN Reason: Fever >100.4 F Last Admin: 06/16/17 09:05 Dose: 650 mg Acetaminophen/Butalbital/Caffeine (Fioricet) 2 tab PO Q8H PRN PRN Reason: Headache Last Admin: 06/16/17 03:56 Dose: 2 tab Albuterol/Ipratropium (Duoneb 3 Mg/0.5 Mg (3 Ml) Ud) 3 ml IH [id number] FRED Last Admin: 06/16/17 07:58 Dose: 3 ml Doxycycline Hyclate (Doryx) 100 mg PO Q12 FRED PRN Reason: Protocol Stop: 06/23/17 22:01 Last Admin: 06/16/17 09:06 Dose: 100 mg Vancomycin HCl (Vancomycin 1gm) 1 gm in 250 mls @ 167 mls/hr IVPB Q12H FRED PRN Reason: Protocol Last Admin: 06/16/17 03:43 Dose: 167 mls/hr Ondansetron HCl (Zofran Inj) 4 mg IVP Q6H PRN PRN Reason: Nausea/Vomiting Pantoprazole Sodium (Protonix Ec Tab) 40 mg PO 0630 FRED Last Admin: 06/16/17 05:47 Dose: Not Given Promethazine HCl/Codeine (Phenergan/Codeine Oral Syrup) 5 ml PO Q6H PRN PRN Reason: Cough and congestion Last Admin: 06/16/17 09:05 Dose: 5 ml - Labs Labs: 06/15/17 06:30 06/15/17 06:30 PT 14.8 SECONDS (9.4-12.5) H 06/11/17 23:30 INR 1.35 (0.93-1.08) H 06/11/17 23:30 APTT 32.4 Seconds (25.1-36.5) 06/11/17 23:30 - Constitutional Appears: Non-toxic - Head Exam Head Exam: NORMAL INSPECTION - ENT Exam ENT Exam: Mucous Membranes Moist - Neck Exam Neck Exam: absent: Lymphadenopathy, Meningismus - Respiratory Exam Respiratory Exam: Decreased Breath Sounds - Cardiovascular Exam Cardiovascular Exam: +S1, +S2 - GI/Abdominal Exam GI & Abdominal Exam: Soft. absent: Tenderness Assessment and Plan - Assessment and Plan (Free Text) Plan: Assessment Sepsis due to infected sebaceous cyst on the back S/P I and D; also with acute bronchitis obesity with BMI 36 history of smoking history of bronchitis Plan Continue Vancomycin and Doxycycline; blood cx are negative reviewed CXR and CT chest patient to be started on steroids as discussed with Dr. Gomes will monitor clinically while the patient is in the hospital
--- NOTE | 2017-06-16 13:14 | PN ---
DATE: SUMMARY: The patient is seen. There is a sebaceous in the back with some purulence has been expressed from, I do not think this is a source of sepsis. Treated with IV antibiotics, eventually it should be excised. David Salazar MD
[2017-06-16] MEDS ORDERED: MethylPREDNISolone 40 mg Vial IV STA (14:11)
[2017-06-16] MEDS ORDERED: Meropenem 1 GM in Dextrose 5% In Water 100 ML IVPB STA (17:10)
[2017-06-16] MEDS ORDERED: Albuterol-Ipratrop 3 mg / 0.5 (3 ml) UD IH STA ×2 (17:12→20:00)
[2017-06-16 17:20] LABS: ARTERIAL BLOOD GAS HCO3 23.2 mmol/L (21-28); ARTERIAL BLOOD GAS O2 CONTENT 19.8 ML/dl (15-23); ARTERIAL BLOOD GAS PH 7.43 (7.35-7.45); ARTERIAL BLOOD HGB O2 SAT 95.9 % (95.0-98.0); CARBOXYHEMOGLOBIN 1.8 % (0.5-1.5); HHB 1.2 % (0-5)
[2017-06-16] MEDS ORDERED: Iohexol 350 MG/100 ML VIAL ONE (17:23)
[2017-06-16 17:37] LABS: HEMATOCRIT 43.4 % (42.0-52.0); MEAN CELL VOLUME 92.1 fl (80.0-105.0); MEAN CORPUSCULAR HEMOGLOBIN 31.2 pg (25.0-35.0); MEAN CORPUSCULAR HGB CONC 33.9 g/dl (31.0-37.0); MEAN PLATELET VOLUME 10.6 fl (7.0-11.0); RED CELL DISTRIBUTION WIDTH 13.5 % (11.5-14.5); WHITE BLOOD COUNT 8.8 10^3/ul (4.5-11.0)
--- NOTE | 2017-06-16 17:48 | CP.PCM.PN ---
<Breezy Bales - Last Filed: 06/16/17 17:37> Subjective - Date & Time of Evaluation Date of Evaluation: 06/16/17 Time of Evaluation: 17:30 - Subjective Subjective: FRAME STRIPPER Note FRAME STRIPPER was called as pt was experiencing SOB and diaphoresis as per nurse. Pt was seen and examined at bedside. Pt vitals were: BP: 133/87, 02 sat: 97% on 2L NC, HR: 90bpm, RR: 20, Blood gas was 113. Pt had good air movement through all lung rose, and CTA b/l. No edema present on extremities. Pt placed on NC at 5L. EKG was ordered stat and did not demonstrate any acute changes from previous EKGs. ENT was at bedside and performed a laryngoscope and noted that the patient had reactive changes to his nasal membranes. ENT recommended flonase and humidified air via NC. Labs were drawn: CBC, CMP, Trops, and ABG. CTA chest PE protocol was also ordered. 1 dose of Merrem was administered. ABG was reviewed and did not warrant any further respiratory treatment at the time. Pt placed back on 2 L NC. Objective - Vital Signs/Intake and Output Vital Signs (last 24 hours): Temp Pulse Resp BP Pulse Ox 98.4 F 62 20 130/72 97 06/16/17 07:30 06/16/17 07:30 06/16/17 07:30 06/16/17 07:30 06/16/17 07:30 Intake and Output: 06/16/17 06/16/17 06:59 18:59 Intake Total 1020 960 Balance 1020 960 - Medications Medications: Current Medications Acetaminophen (Tylenol 325mg Tab) 650 mg PO Q4H PRN PRN Reason: Fever >100.4 F Last Admin: 06/16/17 09:05 Dose: 650 mg Acetaminophen/Butalbital/Caffeine (Fioricet) 2 tab PO Q8H PRN PRN Reason: Headache Last Admin: 06/16/17 13:49 Dose: 2 tab Albuterol/Ipratropium (Duoneb 3 Mg/0.5 Mg (3 Ml) Ud) 3 ml IH [id number] FRED Last Admin: 06/16/17 13:49 Dose: 3 ml Doxycycline Hyclate (Doryx) 100 mg PO Q12 FRED PRN Reason: Protocol Stop: 06/23/17 22:01 Last Admin: 06/16/17 09:06 Dose: 100 mg Vancomycin HCl (Vancomycin 1gm) 1 gm in 250 mls @ 167 mls/hr IVPB Q12H FRED PRN Reason: Protocol Last Admin: 06/16/17 16:00 Dose: 167 mls/hr Meropenem 1 gm/ Dextrose 100 mls @ 100 mls/hr IVPB STAT STA PRN Reason: Protocol Stop: 06/16/17 18:09 Ondansetron HCl (Zofran Inj) 4 mg IVP Q6H PRN PRN Reason: Nausea/Vomiting Pantoprazole Sodium (Protonix Ec Tab) 40 mg PO 0630 FRED Last Admin: 06/16/17 05:47 Dose: Not Given Promethazine HCl/Codeine (Phenergan/Codeine Oral Syrup) 5 ml PO Q6H PRN PRN Reason: Cough and congestion Last Admin: 06/16/17 09:05 Dose: 5 ml - Labs Labs: 06/15/17 06:30 06/15/17 06:30 PT 14.8 SECONDS (9.4-12.5) H 06/11/17 23:30 INR 1.35 (0.93-1.08) H 06/11/17 23:30 APTT 32.4 Seconds (25.1-36.5) 06/11/17 23:30 - Constitutional Appears: No Acute Distress - Head Exam Head Exam: ATRAUMATIC, NORMAL INSPECTION, NORMOCEPHALIC - Eye Exam Eye Exam: EOMI, Normal appearance, PERRL Pupil Exam: NORMAL ACCOMODATION, PERRL - ENT Exam ENT Exam: Mucous Membranes Dry - Neck Exam Neck Exam: Full ROM, Normal Inspection. absent: Lymphadenopathy - Respiratory Exam Respiratory Exam: Clear to Ausculation Bilateral, NORMAL BREATHING PATTERN - Cardiovascular Exam Cardiovascular Exam: REGULAR RHYTHM, +S1, +S2. absent: Murmur - GI/Abdominal Exam GI & Abdominal Exam: Soft, Normal Bowel Sounds. absent: Tenderness - Extremities Exam Extremities Exam: Full ROM, Normal Capillary Refill, Normal Inspection. absent : Joint Swelling, Pedal Edema - Neurological Exam Neurological Exam: Alert, Awake, CN II-XII Intact, Oriented x3 - Psychiatric Exam Psychiatric exam: Normal Affect, Normal Mood - Skin Skin Exam: Dry, Intact, Normal Color, Warm Assessment and Plan - Assessment and Plan (Free Text) Assessment: 56 M with worsening SOB - IV solumedrol - flonase - humified 02 NC - ABG/ VBG shock panel - FU CTA Chest - Iv protonix - SC heparin <Dot Morelos - Last Filed: 06/17/17 14:25> Objective - Vital Signs/Intake and Output Vital Signs (last 24 hours): Temp Pulse Resp BP Pulse Ox 97.6 F 75 18 116/77 99 06/17/17 07:00 06/17/17 07:00 06/17/17 07:00 06/17/17 07:00 06/17/17 07:00 Intake and Output: 06/17/17 06/17/17 06:59 18:59 Intake Total 960 Balance 960 - Medications Medications: Current Medications Acetaminophen (Tylenol 325mg Tab) 650 mg PO Q4H PRN PRN Reason: Fever >100.4 F Last Admin: 06/16/17 09:05 Dose: 650 mg Acetaminophen/Butalbital/Caffeine (Fioricet) 2 tab PO Q8H PRN PRN Reason: Headache Last Admin: 06/16/17 13:49 Dose: 2 tab Albuterol/Ipratropium (Duoneb 3 Mg/0.5 Mg (3 Ml) Ud) 3 ml IH [id number] [facility] Last Admin: 06/17/17 13:37 Dose: 3 ml Albuterol/Ipratropium (Duoneb 3 Mg/0.5 Mg (3 Ml) Ud) 3 ml IH Q2H PRN PRN Reason: Shortness of Breath Budesonide (Pulmicort Respules) 0.5 mg IH [id number] [facility] Last Admin: 06/17/17 07:25 Dose: 0.5 mg Doxycycline Hyclate (Doryx) 100 mg PO Q12 FRED PRN Reason: Protocol Stop: 06/23/17 22:01 Last Admin: 06/17/17 10:06 Dose: 100 mg Fluticasone Propionate (Flonase) 1 actuation NS DAILY [facility] Last Admin: 06/17/17 10:29 Dose: 1 inhaler Heparin Sodium (Porcine) (Heparin) 5,000 units SC Q8 FRED PRN Reason: Protocol Last Admin: 06/17/17 06:05 Dose: 5,000 units Methylprednisolone (Solu-Medrol) 40 mg IVP DAILY [facility] Last Admin: 06/17/17 10:06 Dose: 40 mg Ondansetron HCl (Zofran Inj) 4 mg IVP Q6H PRN PRN Reason: Nausea/Vomiting Pantoprazole Sodium (Protonix Inj) 40 mg IVP DAILY [facility] Last Admin: 06/17/17 10:06 Dose: 40 mg Promethazine HCl/Codeine (Phenergan/Codeine Oral Syrup) 5 ml PO Q6H PRN PRN Reason: Cough and congestion Last Admin: 06/16/17 09:05 Dose: 5 ml - Labs Labs: 06/16/17 17:25 06/16/17 17:25 PT 14.8 SECONDS (9.4-12.5) H 06/11/17 23:30 INR 1.35 (0.93-1.08) H 06/11/17 23:30 APTT 32.4 Seconds (25.1-36.5) 06/11/17 23:30 Attending/Attestation - Attestation I have personally seen and examined this patient.: Yes I have fully participated in the care of the patient.: Yes I have reviewed all pertinent clinical information, including history, physical exam and plan: Yes Notes (Text): 06/17/17 14:17 attending note; Patient seen and examined with resident during rapid response. Patient is a 56-year-old male admitted with significant viral symptoms/URI/ asthmatic bronchitis. Currently patient is complaining of shortness of breath. Vitals stable. Oxygen saturation is 98% on nasal cannula. EKG normal. CT chest was normal. ENT evaluation appreciated. Will change to nasal cannula with humidified oxygen. Started on Flonase nasal spray. Started on IV Solu-Medrol. DVT prophylaxis. CT angiogram of chest ordered to rule out PE. addendum; troponin is negative. CT angios is negative for PE. case discussed with PMD Dr. Gomes in detail.
[2017-06-16 17:57] LABS: TROPONIN I < 0.01 ng/mL
[2017-06-16 18:17] LABS: ALB/GLOB RATIO 1.1 (1.1-1.8); ALKALINE PHOSPHATASE 91 U/L (38-126); ALT/SGPT 81 U/L (7-56); AST/SGOT 60 U/L (17-59); BILIRUBIN,TOTAL 0.6 mg/dL (0.2-1.3); BLOOD UREA NITROGEN 18 mg/dL (7-21); CALCIUM 9.4 mg/dL (8.4-10.5); CARBON DIOXIDE 24 mmol/L (21-33); CHLORIDE 103 mmol/L (98-107); GFR AFRICAN-AMERICAN > 60; GLUCOSE,RANDOM 148 mg/dL (70-110); POTASSIUM 4.2 mmol/L (3.6-5.0); SODIUM 139 mmol/L (132-148); TOTAL PROTEIN 8.1 g/dL (5.8-8.3)
[2017-06-16 18:30] LABS: VENOUS BLOOD PH 7.37 (7.32-7.43)
--- NOTE | 2017-06-16 19:44 | CARD ---
APPROVED REPORT EKG Measurement Heart [id number] <Conclusion> Sinus rhythm with premature atrial complexes with aberrant conduction Otherwise normal ECG
--- NOTE | 2017-06-16 19:56 | CT ---
EXAM: CT Angiography Chest With Intravenous Contrast EXAM DATE/TIME: 06/16/2017 5:04 PM CLINICAL HISTORY: The patient age is 56 years old and is male; Signs and symptoms; Shortness of breath; Additional info: R/O pe Facility exam id and description: Ct [facility] angio chest pe protocol TECHNIQUE: Axial computed tomographic angiography images of the chest with intravenous contrast using pulmonary embolism protocol. All CT scans at this facility use one or more dose reduction techniques, viz.: automated exposure control; ma/kV adjustment per patient size (including targeted exams where dose is matched to indication; i.e. head); or iterative reconstruction technique. MIP reconstructed images were created and reviewed. Coronal and sagittal reformatted images were created and reviewed. CONTRAST: 100 mL of OMNI 350 administered intravenously. COMPARISON: CT - CHEST W/O CONTRAST 2017-06-12 16:30 FINDINGS: Pulmonary arteries: There is no acute central pulmonary embolism. Evaluation of the peripheral pulmonary arteries is nondiagnostic due to artifact and poor enhancement. Aorta: No acute findings. No thoracic aortic aneurysm. Lungs: Atelectatic changes are identified within both lower lobes of the lungs. This has progressed. Patchy nonspecific groundglass density visualized within the lungs bilaterally. No mass. Pleural space: No significant effusion. No pneumothorax. Heart: No cardiomegaly. No significant pericardial effusion. No evidence of RV dysfunction. Bones/joints: Hypertrophic degenerative changes are noted within the spine. There is increased concavity of thoracic endplates within the mid lower thoracic spine. Lymph nodes: Axillary lymph nodes are seen bilaterally, a few which are enlarged. A right axillary lymph node measures 2.1 cm in length with a prominent fatty hilum. These lymph nodes are nonspecific as to etiology. Small mediastinal lymph nodes are identified, without significant mediastinal lymphadenopathy. Spleen: There is mild splenomegaly. The spleen measures 12.7 cm in length. IMPRESSION: 1. There is no acute central pulmonary embolism. Evaluation of the peripheral pulmonary arteries is nondiagnostic due to artifact and poor enhancement. If further evaluation is clinically indicated, a VQ scan is recommended. 2. Atelectatic changes are identified within both lower lobes of the lungs. This has progressed. 3. Axillary lymph nodes are seen bilaterally, a few which are mildly enlarged. These lymph nodes are nonspecific as to etiology. 4. There is mild splenomegaly. 5. Incidental/non-acute findings are described above.
--- NOTE | 2017-06-16 20:00 | CP.PCM.PN ---
Subjective - Date & Time of Evaluation Date of Evaluation: 06/16/17 Time of Evaluation: 19:53 - Subjective Subjective: Patient seen at bedside for follow up. Complains of headache, mild, diffuse, can not talk , because of shortness of breath, heaviness in chest , across lower anterior chest , no other complaints. Previous events noted. No other complaints now. CT head pending. CT angio chest- negative for PE. Shows bilateral axillary lymphadenopathy, spleenomegaly. This 56 year old white male was admitted with cough , congestion, headache, lightheadedness, tiredness. Has PMH of PNA, obesity. Objective - Vital Signs/Intake and Output Vital Signs (last 24 hours): Temp Pulse Resp BP Pulse Ox 99.7 F H 90 20 116/80 97 06/16/17 16:00 06/16/17 16:00 06/16/17 16:00 06/16/17 16:00 06/16/17 16:00 Intake and Output: 06/16/17 06/17/17 18:59 06:59 Intake Total 960 Balance 960 - Medications Medications: Current Medications Acetaminophen (Tylenol 325mg Tab) 650 mg PO Q4H PRN PRN Reason: Fever >100.4 F Last Admin: 06/16/17 09:05 Dose: 650 mg Acetaminophen/Butalbital/Caffeine (Fioricet) 2 tab PO Q8H PRN PRN Reason: Headache Last Admin: 06/16/17 13:49 Dose: 2 tab Albuterol/Ipratropium (Duoneb 3 Mg/0.5 Mg (3 Ml) Ud) 3 ml IH [id number] [facility] Last Admin: 06/16/17 13:49 Dose: 3 ml Doxycycline Hyclate (Doryx) 100 mg PO Q12 FRED PRN Reason: Protocol Stop: 06/23/17 22:01 Last Admin: 06/16/17 09:06 Dose: 100 mg Fluticasone Propionate (Flonase) 1 actuation NS DAILY [facility] Heparin Sodium (Porcine) (Heparin) 5,000 units SC Q8 FRED PRN Reason: Protocol Last Admin: 06/16/17 18:21 Dose: 5,000 units Vancomycin HCl (Vancomycin 1gm) 1 gm in 250 mls @ 167 mls/hr IVPB Q12H FRED PRN Reason: Protocol Last Admin: 06/16/17 16:00 Dose: 167 mls/hr Methylprednisolone (Solu-Medrol) 40 mg IVP DAILY [facility] Ondansetron HCl (Zofran Inj) 4 mg IVP Q6H PRN PRN Reason: Nausea/Vomiting Pantoprazole Sodium (Protonix Inj) 40 mg IVP DAILY [facility] Promethazine HCl/Codeine (Phenergan/Codeine Oral Syrup) 5 ml PO Q6H PRN PRN Reason: Cough and congestion Last Admin: 06/16/17 09:05 Dose: 5 ml - Labs Labs: 06/16/17 17:25 06/16/17 17:25 PT 14.8 SECONDS (9.4-12.5) H 06/11/17 23:30 INR 1.35 (0.93-1.08) H 06/11/17 23:30 APTT 32.4 Seconds (25.1-36.5) 06/11/17 23:30 Micro Results 06/11/17 23:45 Blood Blood Culture - Preliminary NO GROWTH AFTER 4 DAYS 06/11/17 23:30 Blood Blood Culture - Preliminary NO GROWTH AFTER 4 DAYS 06/12/17 08:40 Urine,Clean Catch Urine Culture - Final No Growth (<1,000 CFU/ML) Most Recent Lab Values WBC 8.8 10^3/ul (4.5-11.0) 06/16/17 17:25 RBC 4.71 10^6/uL (3.5-6.1) 06/16/17 17:25 Hgb 14.7 g/dL (14.0-18.0) 06/16/17 17:25 Hct 43.4 % (42.0-52.0) 06/16/17 17:25 MCV 92.1 fl (80.0-105.0) 06/16/17 17:25 MCH 31.2 pg (25.0-35.0) 06/16/17 17:25 MCHC 33.9 g/dl (31.0-37.0) 06/16/17 17:25 RDW 13.5 % (11.5-14.5) 06/16/17 17:25 Plt Count 249 10^3/uL (120.0-450.0) 06/16/17 17:25 MPV 10.6 fl (7.0-11.0) 06/16/17 17:25 Gran % 63.3 % (50.0-68.0) 06/15/17 06:30 Lymph % (Auto) 23.5 % (22.0-35.0) 06/15/17 06:30 Wilkinson % (Auto) 10.2 % (1.0-6.0) H 06/15/17 06:30 Eos % (Auto) 2.2 % (1.5-5.0) 06/15/17 06:30 Baso % (Auto) 0.8 % (0.0-3.0) 06/15/17 06:30 Gran # 5.52 (1.4-6.5) 06/15/17 06:30 Lymph # 2.1 (1.2-3.4) 06/15/17 06:30 Wilkinson # 0.9 (0.1-0.6) H 06/15/17 06:30 Eos # 0.2 (0.0-0.7) 06/15/17 06:30 Baso # 0.07 K/mm3 (0.0-2.0) 06/15/17 06:30 PT 14.8 SECONDS (9.4-12.5) H 06/11/17 23:30 INR 1.35 (0.93-1.08) H 06/11/17 23:30 APTT 32.4 Seconds (25.1-36.5) 06/11/17 23:30 pCO2 35 mm/Hg (35-45) 06/16/17 17:10 pO2 22 mm/Hg (30-55) L 06/16/17 18:27 HCO3 23.2 mmol/L (21-28) 06/16/17 17:10 ABG pH 7.43 (7.35-7.45) 06/16/17 17:10 ABG Total CO2 24.3 mmol.L (22-28) 06/16/17 17:10 ABG O2 Saturation 98.8 % (95-98) H 06/16/17 17:10 ABG O2 Content 19.8 ML/dl (15-23) 06/16/17 17:10 ABG Base Excess -0.6 mmol/L (-2.0-3.0) 06/16/17 17:10 ABG Hemoglobin 14.6 g/dL (11.7-17.4) 06/16/17 17:10 ABG Carboxyhemoglobin 1.8 % (0.5-1.5) H 06/16/17 17:10 POC ABG HHb (Measured) 1.2 % (0-5) 06/16/17 17:10 ABG Methemoglobin 1.0 % (0.0-3.0) 06/16/17 17:10 ABG O2 Capacity 20.0 mL/dl (16-24) 06/16/17 17:10 VBG pH 7.37 (7.32-7.43) 06/16/17 18:27 VBG pCO2 53.0 (40-60) 06/16/17 18:27 VBG HCO3 30.6 mmol/l (21-28) H 06/16/17 18:27 VBG Total CO2 32.2 mmol.L (22-28) H 06/16/17 18:27 VBG O2 Sat (Calc) 45.7 % (40-65) 06/16/17 18:27 VBG Base Excess 4.0 mmol/L (0.0-2.0) H 06/16/17 18:27 VBG Potassium 4.8 mmol/L (3.6-5.2) 06/16/17 18:27 Hgb O2 Saturation 95.9 % (95.0-98.0) 06/16/17 17:10 Sodium 137.0 mmol/L (132-148) 06/16/17 18:27 Chloride 103.0 mmol/L (98-107) 06/16/17 18:27 Glucose 165 mg/dl (75-110) H 06/16/17 18:27 Lactate 2.0 mmol/L (0.7-2.1) 06/16/17 18:27 FiO2 21.0 % 06/16/17 18:27 Sodium 139 mmol/L (132-148) 06/16/17 17:25 Potassium 4.2 mmol/L (3.6-5.0) 06/16/17 17:25 Chloride 103 mmol/L (98-107) 06/16/17 17:25 Carbon Dioxide 24 mmol/L (21-33) 06/16/17 17:25 Anion Gap 16 (10-20) 06/16/17 17:25 BUN 18 mg/dL (7-21) 06/16/17 17:25 Creatinine 0.9 mg/dl (0.8-1.5) 06/16/17 17:25 Est GFR ( Amer) > 60 06/16/17 17:25 Est GFR (Non-Af Amer) > 60 06/16/17 17:25 Random Glucose 148 mg/dL (70-110) H 06/16/17 17:25 Calcium 9.4 mg/dL (8.4-10.5) 06/16/17 17:25 Phosphorus 3.2 mg/dL (2.5-4.5) 06/11/17 23:30 Magnesium 1.9 mg/dL (1.7-2.2) 06/11/17 23:30 Total Bilirubin 0.6 mg/dL (0.2-1.3) 06/16/17 17:25 AST 60 U/L (17-59) H D 06/16/17 17:25 ALT 81 U/L (7-56) H 06/16/17 17:25 Alkaline Phosphatase 91 U/L (38-126) 06/16/17 17:25 Lactate Dehydrogenase 865 U/L (333-699) H 06/11/17 23:30 Total Creatine Kinase 79 U/L (35-230) 06/11/17 23:30 Troponin I < 0.01 ng/mL 06/16/17 17:25 NT-Pro-B Natriuret Pep 56.2 pg/mL (0-450) 06/16/17 17:25 Total Protein 8.1 g/dL (5.8-8.3) 06/16/17 17:25 Albumin 4.2 g/dL (3.0-4.8) 06/16/17 17:25 Globulin 3.8 gm/dL 06/16/17 17:25 Albumin/Globulin Ratio 1.1 (1.1-1.8) 06/16/17 17:25 Lipase 93 U/L (23-300) 06/11/17 23:30 Procalcitonin 0.18 NG/ML (0.19-0.49) L 06/16/17 10:00 Venous Blood Potassium 4.8 mmol/L (3.6-5.2) 06/16/17 18:27 Urine Color Yellow (YELLOW) 06/12/17 08:40 Urine Appearance Clear (CLEAR) 06/12/17 08:40 Urine pH 5.5 (4.7-8.0) 06/12/17 08:40 Ur Specific [place] >= 1.030 (1.005-1.035) 06/12/17 08:40 Urine Protein Trace mg/dL (<30 mg/dL) H 06/12/17 08:40 Urine Glucose (UA) Negative mg/dL (NEGATIVE) 06/12/17 08:40 Urine Ketones 15 mg/dL (NEGATIVE) H 06/12/17 08:40 Urine Blood Negative (NEGATIVE) 06/12/17 08:40 Urine Nitrate Negative (NEGATIVE) 06/12/17 08:40 Urine Bilirubin Negative (NEGATIVE) 06/12/17 08:40 Urine Urobilinogen 1.0 E.U./dL (<1 E.U./dL) H 06/12/17 08:40 Ur Leukocyte Esterase Negative Mihir/uL (NEGATIVE) 06/12/17 08:40 Urine RBC 0 - 2 /hpf (0-2) 06/12/17 08:40 Urine WBC 0 - 2 /hpf (0-6) 06/12/17 08:40 HIV 1&2 Ag/Ab, 4th Gen Nonreactive (Nonreactive) 06/14/17 10:20 Influenza Typ A,B (EIA) Negative for flu a/b (NEGATIVE) 06/11/17 23:30 - Constitutional Appears: Well, No Acute Distress - Head Exam Head Exam: ATRAUMATIC, NORMAL INSPECTION, NORMOCEPHALIC - Eye Exam Eye Exam: Normal appearance - ENT Exam ENT Exam: Mucous Membranes Moist, Normal External Ear Exam - Neck Exam Neck Exam: Normal Inspection - Respiratory Exam Respiratory Exam: Clear to Ausculation Bilateral, NORMAL BREATHING PATTERN - Cardiovascular Exam Cardiovascular Exam: REGULAR RHYTHM, +S1 (Normal.), +S2 (Normal.). absent: JVD - GI/Abdominal Exam GI & Abdominal Exam: Normal Bowel Sounds. absent: Distended - Rectal Exam Rectal Exam: Deferred - Exam Additional comments: Deferred. - Extremities Exam Extremities Exam: Normal Inspection - Back Exam Back Exam: NORMAL INSPECTION - Neurological Exam Neurological Exam: Alert, Oriented x3 - Psychiatric Exam Psychiatric exam: Normal Affect, Normal Mood - Skin Skin Exam: Normal Color Assessment and Plan - Assessment and Plan (Free Text) Assessment: URI. Dyspnea. Headache. Cough. Congestion. Heaviness in chest . PNA? Obesity. Plan: Duoneb neb treatment. Solumedrol 60 mg IV x 1. EKG-No acute changes. Troponin -neg. CT angio negative for PE. Continue present management. F/U CT head.
--- NOTE | 2017-06-16 20:50 | CT ---
EXAM: CT Head Without Intravenous Contrast EXAM DATE/TIME: 06/16/2017 6:50 PM CLINICAL HISTORY: The patient age is 56 years old and is male; Signs and symptoms; Altered mental status/memory loss; Confusion or disorientation; Additional info: Change in mental status Facility exam id and description: Ct heads head w/o contrast TECHNIQUE: Axial computed tomography images of the head/brain without intravenous contrast. All CT scans at this facility use one or more dose reduction techniques, viz.: automated exposure control; ma/kV adjustment per patient size (including targeted exams where dose is matched to indication; i.e. head); or iterative reconstruction technique. COMPARISON: CT - HEAD W/O CONTRAST 2017-06-11 23:57 FINDINGS: Brain: The white-sharp differentiation is preserved demonstrating no acute territorial type infarct. No acute intracranial hemorrhage is seen. There is slight atrophy of the frontal sulci. There is a mild increase in fluid within the anterior aspect of the left middle cranial fossa, which may be contributed by atrophy or due to an arachnoid cyst. This measures approximately 2.0 x 0.9 cm. Midline shift: There is no midline shift. Ventricles: No ventriculomegaly. Bones/joints: The calvarium demonstrates no evidence for a depressed fracture. Soft tissues: No acute abnormality. Sinuses: Unremarkable as visualized. No acute sinusitis. Mastoid air cells: No mastoid effusion. IMPRESSION: 1. No acute intracranial hemorrhage or acute territorial type infarct. 2. There is slight atrophy of the frontal sulci. 3. Additional CT findings described above.
[2017-06-16 22:17] LABS: VENOUS BLOOD GAS BASE EXCESS 1.7 mmol/L (0.0-2.0); VENOUS BLOOD PH 7.37 (7.32-7.43)
[2017-06-17] MEDS: Albuterol-Ipratrop 3 mg / 0.5 (3 ml) UD IH SCH ×4 (01:33→20:51)
[2017-06-17] MEDS: Vancomycin 1gm in NS 250ml 1 GM/250 ML BAG IVPB SCH (04:00)
[2017-06-17] MEDS ORDERED: Albuterol-Ipratrop 3 mg / 0.5 (3 ml) UD IH PRN (07:01)
[2017-06-17] MEDS: Budesonide 0.5 mg/2 ml Inhal Susp UD IH SCH ×2 (07:25→20:51)
--- NOTE | 2017-06-17 08:01 | CON ---
PULMONARY CONSULTATION REASON FOR CONSULTATION: Shortness of breath. REFERRING PHYSICIAN: Caden Gomes MD HISTORY: The patient is a 56-year-old male, with past medical history significant for recurrent bronchitis, questionable chronic obstructive pulmonary disease, positive former smoker, mild obesity, hypertension, who presented to [facility] ([facility]originally on 06/11/2017-with a 2-day history of worsening shortness of breath at rest, dyspnea on exertion, cough, and sputum production. There is no history of chest pain, coughing up of blood, or chest pain-made worse with deep respirations. The patient did present with temperatures. The temperatures are now resolving. No history of chills or infectious exposure. No history of night sweats, weight loss or appetite change prior to the above events. No history of leg or calf pains. No history of syncope or diaphoresis. No history of recent travel or trauma. I did review the chart at length and discussed the case with the patient at length. Apparently, yesterday, the patient had an episode of increased shortness of breath with cough. He was given stat nebulizer treatments and stat intravenous steroids. He is comfortable and feeling much better this morning. REVIEW OF SYSTEMS: No history of nausea, vomiting or diarrhea. No acute urinary symptoms. No new neurologic or musculoskeletal complaints. Rest of the review of systems negative. ALLERGIES: NO KNOWN ALLERGIES. SOCIAL HISTORY: Positive for tobacco and negative for alcohol. FAMILY HISTORY: No inheritable diseases. HOME MEDICATIONS: None. PHYSICAL EXAMINATION: GENERAL: The patient is comfortable at rest. He is not short of breath. He is not using accessory muscles for breathing. VITAL SIGNS: Temperature is 97.6, pulse 80, respirations 18, blood pressure 116/80. Oxygen saturation on nasal cannula is 99%. HEENT: Normocephalic, atraumatic. NECK: No JVD. CARDIOVASCULAR: Positive S1, S2. No S3 gallop. LUNGS: Decreased breath sounds at the bases. Minimal bilateral rhonchi and wheezing are appreciated. EXTREMITIES: No clubbing, cyanosis or edema. Calves are nontender to palpation. GI: Abdomen is soft, nontender and nondistended. Bowel sounds are positive. SKIN: Infected sebaceous cyst-back area. No rashes. NEUROLOGIC: Limited at the present time. PERTINENT LABORATORY DATA: CAT scan of the chest was done yesterday as an angiogram protocol. There is no pulmonary embolism seen. There are minimal linear atelectatic changes at both bases. These changes are slightly more pronounced compared to the previous CAT scan, but remain very minimal. There is no significant lymphadenopathy. There is no acute pulmonary consolidation or mass noted. CBC: White count 8.8, hemoglobin 14.7, hematocrit 43.4, and platelets of 249. Arterial blood gas was done yesterday on nasal cannula. Results are: PH 7.43, pCO2 of 35, pO2 of 94. IMPRESSION: 1. Acute bronchitis. 2. Questionable chronic obstructive pulmonary disease. 3. Minimal atelectasis at the bases. 4. Infected sebaceous cyst. PLAN: The patient presented to [facility]originally on 06/11/2017-with increasing pulmonary symptoms for the previous 2 days. He also presented to the emergency room with an infected sebaceous cyst on his back. He was thus admitted for additional evaluation. As above, yesterday, the patient did experience increasing shortness of breath with cough. He was given intravenous steroids and nebulizer treatments. He feels significantly better this morning. I did review the CAT scan of the chest-done as an angiogram protocol. There are minimal linear atelectatic changes at the bases. There is no pulmonary embolism. There are no other acute abnormalities. On physical exam, the patient is in mild bronchospasm. There is no significant alveolar-arterial gradient. Oxygen saturation on nasal cannula this morning is 99%. I will continue with the current nebulizer treatments and low-dose intravenous steroids for now. I will also add inhaled Pulmicort this morning. The patient is on antibiotic therapy-as per Infectious Disease. The temperatures have resolved. There is no leukocytosis. Clinical status of the patient is significantly improved this morning. Additional pulmonary intervention will be based on the clinical status of the patient. I will discuss the above with Dr. Gomes. Thank you very much for this pulmonary consultation. Josh Hurley MD MTDAsad
--- NOTE | 2017-06-17 08:43 | CON ---
DATE: 06/16/2017 ENT CONSULTV CHIEF COMPLAINT: Cough. HISTORY OF PRESENT ILLNESS: This is a 56-year-old male with past medical history of bronchitis who presented to the ER with worsening shortness of breath along with cough and headache. ENT was consulted for consistent recurrent cough along with possible glossitis involvement. The patient reports that he has had bronchitis before and this current episode is similar to the one in the past. The patient also reports that his bronchitis usually flares up during this time of the season during the winter time. The patient reports that when he goes into a coughing fit, he has difficulty breathing and difficulty catching his breath and during those same episodes, he also appreciates very breathy breathing which makes difficult for him to talk. He denies any change of voice or any sensation of postnasal drip currently. He reports that he is taking Tylenol and NyQuil for his cough and has had no reflux. Of note, he does report severe history of GERD which sometimes he feels the in back of his throat. He denies any dysphagia or odynophagia. Also of note, the patient reports nasal congestion that he always gets here around the winter time and does not usually take anything for it. He denies any epistaxis. Also, he denies any hearing loss or any tinnitus. PAST MEDICAL HISTORY: Bronchitis. PAST SURGICAL HISTORY: Left knee surgery. ALLERGIES: NO KNOWN DRUG ALLERGIES. SOCIAL HISTORY: The patient is a former smoker. He smokes 1-1/2 pack a day for 15 to 20 years. He quit about 15 years ago. REVIEW OF SYSTEMS: All 10 review of systems were obtained and all negative except per HPI. PHYSICAL EXAMINATION: GENERAL: AAO x3. The patient is slightly in distress. VITAL SIGNS: 99.7 is temperature, pulse rate is 86, blood pressure is 138/85, respirations 20, he is saturating at 97% on room air. HEENT: Nasal cavity are patent bilaterally. There is dry mucosa at the nasal septum along with dry blood likely from past epistaxis or crustation due to nasal cannula. Mouth; moist mucous membrane. No masses or lesions. No postnasal drip appreciated currently. NECK: No lymphadenopathy appreciated. PROCEDURE: After the patient consent, a flexible laryngoscopy was performed. The scope was advanced and was used to look into both nasal cavities. Severe polypoid tissues were appreciated to the middle and inferior turbinates bilaterally along with severe crusty tissue of the nasal septum and the turbinates bilaterally with old blood likely secondary to nasal cannula. The scope was advanced from the right nasal cavity due to septal deviation to the left nasal cavity. This scope was passed into the nasopharynx which was patent. The eustachian tube on the right side was opened. The scope was flexed down into the oropharynx, the oropharynx was visualized without any masses or lesions. The base of the tongue was insignificant. The epiglottis was appreciated to be crisp and normal in appearance. The scope was then induced to visualize the glottis. The AE folds in the posterior arytenoids were visualized. The posterior arytenoids were with moderate amount of erythema. The false vocal cords were visualized to be in normal anatomy. The true vocal cords were patent. There were abducting and adducting upon phonation and breathing. Patent airway. The scope was removed by intact visualization. The patient tolerated the procedure well. LABORATORY DATA: His white blood cell is 6.3, his hemoglobin is 15.8, his hematocrit is 45.4, his platelets are 144. ASSESSMENT: This is a 56-year-old male with past medical history of bronchitis with persistent cough likely secondary to seasonal bronchitis, sinus congestion and laryngopharyngeal reflux. PLAN: 1. Flonase for nasal congestion to be applied 1 puff each nostril twice a day for 2 to 3 weeks for nasal congestion. 2. PPIs twice a day before meals for laryngopharyngeal reflux which was evident on flexible laryngoscopy due to erythema of the posterior arytenoids. 3. The patient has patent upper airway without any masses or lesions. 4. The patient to follow up with ENT in 2 weeks. This was discussed with the patient. This was also discussed with the hospitalist, Dr. Gomes. We thank you in allowing us to participate in this patient's care. Mateo Bazan DO
--- NOTE | 2017-06-17 08:45 | PN ---
DATE: 06/16/2017 SUBJECTIVE: The patient is 56 years old, I saw him earlier this morning. He was complaining of shortness of breath and cough. He states when he talks, he becomes short of breath. No fever or chills. PHYSICAL EXAMINATION: VITAL SIGNS: He is afebrile, pulse 97, respirations 20, and blood pressure 133/87. LUNGS: Bilateral fair airflow. No rhonchi or crackle. HEART: S1 and S2 audible. ABDOMEN: Soft and nontender. No rebound. No guarding. NEUROLOGIC: The patient is awake, alert, oriented, and communicative. LABORATORY EXAMINATION: WBC is 8.8, hemoglobin 14, hematocrit 43, platelets 249. Chemistry; sodium 139, potassium 4.2, chloride 103, CO2 of 24, BUN 18, creatinine 0.9, blood sugar 148. AST 60 and ALT 81. ASSESSMENT AND PLAN: 1. Exertional dyspnea. 2. Asthmatic bronchitis. 3. High-grade fever, etiology unclear, probably viral. I got a call around 6:30 that the patient was found to be unresponsive. Rapid Response was called, the patient was transferred to ER for further workup. The patient is getting CT angio to rule out DVT, ordered for CT scan of the head. We will get Pulmonary and Neurology consult, and ENT evaluation has already been requested. The patient was taken to ER from where he will be admitted. Caden Gomes MD
[2017-06-17] MEDS ORDERED: MethylPREDNISolone 40 mg Vial IVP SCH ×2 (10:00→22:00)
[2017-06-17] MEDS: Fluticasone Nasal 50 mcg/Spray NS SCH (10:29)
--- NOTE | 2017-06-17 12:51 | CP.PCM.PN ---
Subjective - Date & Time of Evaluation Date of Evaluation: 06/17/17 Time of Evaluation: 11:35 - Subjective Subjective: Feeling better after the steroids were started, no more fever, breathing better and cough is better. Objective - Vital Signs/Intake and Output Vital Signs (last 24 hours): Temp Pulse Resp BP Pulse Ox 99.7 F H 90 20 116/80 97 06/16/17 16:00 06/16/17 16:00 06/16/17 16:00 06/16/17 16:00 06/16/17 16:00 Intake and Output: 06/17/17 06/17/17 06:59 18:59 Intake Total 960 Balance 960 - Medications Medications: Current Medications Acetaminophen (Tylenol 325mg Tab) 650 mg PO Q4H PRN PRN Reason: Fever >100.4 F Last Admin: 06/16/17 09:05 Dose: 650 mg Acetaminophen/Butalbital/Caffeine (Fioricet) 2 tab PO Q8H PRN PRN Reason: Headache Last Admin: 06/16/17 13:49 Dose: 2 tab Albuterol/Ipratropium (Duoneb 3 Mg/0.5 Mg (3 Ml) Ud) 3 ml IH [id number] COUNT INCLUDES THE [facility] Last Admin: 06/17/17 07:25 Dose: 3 ml Albuterol/Ipratropium (Duoneb 3 Mg/0.5 Mg (3 Ml) Ud) 3 ml IH Q2H PRN PRN Reason: Shortness of Breath Budesonide (Pulmicort Respules) 0.5 mg IH [id number] COUNT INCLUDES THE [facility] Last Admin: 06/17/17 07:25 Dose: 0.5 mg Doxycycline Hyclate (Doryx) 100 mg PO Q12 FRED PRN Reason: Protocol Stop: 06/23/17 22:01 Last Admin: 06/16/17 21:29 Dose: 100 mg Fluticasone Propionate (Flonase) 1 actuation NS DAILY COUNT INCLUDES THE [facility] Heparin Sodium (Porcine) (Heparin) 5,000 units SC Q8 FRED PRN Reason: Protocol Last Admin: 06/17/17 06:05 Dose: 5,000 units Vancomycin HCl (Vancomycin 1gm) 1 gm in 250 mls @ 167 mls/hr IVPB Q12H FRED PRN Reason: Protocol Last Admin: 06/17/17 04:00 Dose: 167 mls/hr Methylprednisolone (Solu-Medrol) 40 mg IVP DAILY FRED Ondansetron HCl (Zofran Inj) 4 mg IVP Q6H PRN PRN Reason: Nausea/Vomiting Pantoprazole Sodium (Protonix Inj) 40 mg IVP DAILY FRED Promethazine HCl/Codeine (Phenergan/Codeine Oral Syrup) 5 ml PO Q6H PRN PRN Reason: Cough and congestion Last Admin: 06/16/17 09:05 Dose: 5 ml - Labs Labs: 06/16/17 17:25 06/16/17 17:25 PT 14.8 SECONDS (9.4-12.5) H 06/11/17 23:30 INR 1.35 (0.93-1.08) H 06/11/17 23:30 APTT 32.4 Seconds (25.1-36.5) 06/11/17 23:30 - Constitutional Appears: Non-toxic - Head Exam Head Exam: NORMAL INSPECTION - ENT Exam ENT Exam: Mucous Membranes Moist - Neck Exam Neck Exam: absent: Meningismus - Respiratory Exam Respiratory Exam: Decreased Breath Sounds - Cardiovascular Exam Cardiovascular Exam: +S1, +S2 - GI/Abdominal Exam GI & Abdominal Exam: Soft. absent: Tenderness Assessment and Plan - Assessment and Plan (Free Text) Plan: Assessment Sepsis due to infected sebaceous cyst on the back S/P I and D; also with acute bronchitis, clinically improving obesity with BMI 36 history of smoking history of bronchitis Plan will d/c Vancomycin and continue Doxycycline; blood cx are negative reviewed CXR and CT chest patient ahs been started on steroids as discussed with Dr. Gomes and has been seen by Dr. Hurley and ENT will monitor clinically while the patient is in the hospital
[2017-06-17] MEDS: Apap-Butalbital-Caffeine 325-50-40mg Tab PO PRN (18:03)
[2017-06-17] MEDS: Promethazine/Cod 6.25mg-10mg/5ml Syr UD PO PRN (18:03)
--- NOTE | 2017-06-17 19:58 | PN ---
DATE: SUBJECTIVE: The patient is a 56-year-old. Yesterday's event noted. The patient became short of breath. Rapid response was called. The patient was taken to ER. He had CT angio done, negative for PE. He was evaluated by Dr. Hurley and impression is asthmatic bronchitis. The patient states he still does not feel back to his baseline. PHYSICAL EXAMINATION: VITAL SIGNS: He is afebrile, pulse 75, respirations 18 and blood pressure 116/77. LUNGS: Bilateral fair airflow. No rhonchi or crackles. HEART: S1 and S2 audible. ABDOMEN: Soft, obese, and nontender. No rebound. No guarding. NEUROLOGIC: He is awake, alert, oriented, and communicative. LABORATORY DATA: WBC is 8.8, hemoglobin 14, hematocrit is 43, and platelets 249. Chemistry: Sodium 139, potassium 4.2, chloride 103, CO2 of 24, BUN 18, creatinine 0.9, and blood sugar of 148. AST 60 and ALT 81. HIV test is negative. CT scan of the head is unremarkable. EKG done yesterday shows normal sinus rhythm with premature atrial complexes. ASSESSMENT: 1. Asthmatic bronchitis. 2. Exertional dyspnea. PLAN: The patient was evaluated by ENT also and currently he is on Flonase. He is on DVT prophylaxis. Currently, he is on doxycycline. He had been started on steroids and awaiting input from ENT. We will reevaluate the patient in a.m. Caden Gomes MD
[2017-06-18] MEDS: Albuterol-Ipratrop 3 mg / 0.5 (3 ml) UD IH SCH ×3 (01:31→13:18)
[2017-06-18] MEDS: Budesonide 0.5 mg/2 ml Inhal Susp UD IH SCH (07:43)
--- NOTE | 2017-06-18 08:36 | PN ---
DATE: 06/18/2017 PULMONARY NOTE SUBJECTIVE: The patient appears very comfortable this morning. He is not short of breath at rest. PHYSICAL EXAMINATION: VITAL SIGNS: (Last noted in the computer): Temperature is 97.7, pulse is 78, respirations 18, blood pressure 130/90. Oxygen saturation on room air is 95%. HEENT: Normocephalic, atraumatic. NECK: No JVD. CARDIOVASCULAR: Positive S1, S2. No S3 gallop. LUNGS: Improved breath sounds at the bases. Very minimal/less rhonchi. No wheezing this morning. EXTREMITIES: No clubbing, cyanosis or edema. Calves are nontender to palpation. GI: Abdomen is soft, nontender and nondistended. Bowel sounds are positive. SKIN: Infected sebaceous cyst - back area. No rashes. NEUROLOGIC: Exam limited at the present time. IMPRESSION: 1. Acute bronchitis. 2. Questionable chronic obstructive pulmonary disease. 3. Minimal atelectasis at the bases. 4. Infected sebaceous cyst. PLAN: The patient appears very comfortable this morning. He is not short of breath at rest. He also states to walking around yesterday with no problems at all. His cough is significantly decreased. He is feeling much, much better overall. On physical exam, his bronchospasm continues to resolve. In addition, there is no significant alveolar-arterial gradient. Oxygen saturation on room air is now 95%. I will continue the current nebulizer treatments and change to oral steroids this morning. The patient is also on oral antibiotics - as per Infectious Disease. Input by Dr. Lund is noted. Clinical status of the patient is significantly improved - compared to the initial presentation. The patient is for probable discharge in the near future. I did give the patient my card/information for a followup appointment. He fully agrees. I will discuss the above with Dr. Gomes. Josh Hurley MD [facility]
--- NOTE | 2017-06-18 10:01 | CARD ---
APPROVED REPORT EXAM: Two-dimensional and M-mode echocardiogram with Doppler and color Doppler. INDICATION DIZZINESS 2D DIMENSIONS Left Atrium (2D)4.2 (1.6-4.0cm)IVSd1.4 (0.7-1.1cm) LVDd5.2 (3.9-5.9cm)PWd1.2 (0.7-1.1cm) LVDs3.3 (2.5-4.0cm)FS (%) 36.7 % LVEF (%)66.0 (>50%) M-Mode DIMENSIONS Aortic Root3.40 (2.2-3.7cm)Aortic Cusp Exc.2.00 (1.5-2.0cm) Aortic Valve AoV Peak Lovrfmvy679.0cm/Elisa Peak GR.14mmHg Mitral Valve MV E Snjxqbnv20.6cm/sMV A Zjgytkrm395.0cm/sE/A ratio0.7 TDI E/Lateral E'0.0E/Medial E'0.0 Tricuspid Valve TR Peak [id number]/sRAP [id number] Peak Gr.35mmHg [id number] LEFT VENTRICLE The left ventricle is normal size. There is mild concentric left ventricular hypertrophy. The left ventricular function is normal. The left ventricular ejection fraction is within the normal range. There is normal LV segmental wall motion. Transmitral Doppler flow pattern is Grade I-abnormal relaxation pattern. RIGHT VENTRICLE The right ventricle is normal size. There is normal right ventricular wall thickness. The right ventricular systolic function is normal. ATRIA The left atrium is borderline dilated. The right atrium size is normal. AORTIC VALVE The aortic valve is not well visualized. No aortic regurgitation is present. There is no aortic valvular stenosis. MITRAL VALVE The mitral valve is normal in structure. There is no mitral valve regurgitation noted. TRICUSPID VALVE There is mild pulmonary hypertension. GREAT VESSELS The aortic root is normal in size. The IVC was not visualized. PERICARDIAL EFFUSION There is no pericardial effusion. <Conclusion> The left ventricle is normal size. There is mild concentric left ventricular hypertrophy. The left ventricular function is normal. The left ventricular ejection fraction is within the normal range. There is normal LV segmental wall motion. Transmitral Doppler flow pattern is Grade I-abnormal relaxation pattern. There is mild pulmonary hypertension.
[2017-06-18] MEDS: Fluticasone Nasal 50 mcg/Spray NS SCH (10:10)
[2017-06-18 17:21] VITALS: BP 126/75; PULSE 81; RESP 20; TEMP 98.6; O2SAT 96
--- NOTE | 2017-06-19 00:39 | DS ---
HISTORY OF PRESENT ILLNESS: The patient is a 56-year-old, seen and examined, and doing well. No nausea or vomiting. No diarrhea. No shortness of breath. Still has scanty cough, but not productive. The patient was admitted on with extreme shortness of breath. He has high-grade fever, went up to 102, had ID evaluated the patient, and was kept on IV antibiotic that was doxycycline and vancomycin since he had infected sebaceous cyst. The patient was doing well up until 06/16/2017 then he became extremely short of breath. He was taken to the ER, had CT angio done negative, and had EEG done was unremarkable for acute ischemia. CT scan of the chest was negative for any infiltrate. He was evaluated by ENT. There was no remarkable finding. We kept him on IV antibiotic and nebulizer treatment and doing well. PHYSICAL EXAMINATION: GENERAL: Today; he is awake, alert, oriented, and communicative. VITAL SIGNS: He is afebrile, pulse 77, respirations 18, and blood pressure 137/94. LUNGS: Bilateral good airflow. No rhonchi or crackles. HEART: S1 and S2 audible. ABDOMEN: Soft and nontender. No rebound. No guarding. NEUROLOGIC: The patient is awake, alert, oriented, able to communicate, and ambulatory. ASSESSMENT: 1. Asthmatic bronchitis. 2. Exertional dyspnea. 3. History of hypertension. 4. Morbid obesity. PLAN: The patient is being discharged home on doxycycline 100 mg twice a day. He was given Phenergan With Codeine one teaspoon t.i.d. p.r.n., prednisone 20 mg twice a day for five more days, and he was given Fioricet for his headaches. He will follow up with Dr. Hart in a.. Caden Gomes MD
== END 2017-06-18 18:18 | disposition home or self-care (01) | DRG 871 ==
LOC: ED 23:19 → ERH 06-12 00:33 → 5RSO 06-12 01:48
PROVIDERS: ADMIT Internal Medicine; ATTEND Internal Medicine
PROC: 0CJS8ZZ Inspection of Larynx, Via Natural or Artificial Opening Endoscopic (ICD-10-PCS; principal; 2017-06-16)
DX: A41.9 Sepsis, unspecified organism (principal); J18.9 Pneumonia, unspecified organism; E87.2 Acidosis; L02.212 Cutaneous abscess of back [any part, except buttock and flank]; J44.0 Chronic obstructive pulmonary disease with (acute) lower respiratory infection; I10 Essential (primary) hypertension; J06.9 Acute upper respiratory infection, unspecified; J20.9 Acute bronchitis, unspecified; J45.909 Unspecified asthma, uncomplicated; K21.9 Gastro-esophageal reflux disease without esophagitis; L72.3 Sebaceous cyst; E66.01 Morbid (severe) obesity due to excess calories; Z68.36 Body mass index [BMI] 36.0-36.9, adult; Z87.01 Personal history of pneumonia (recurrent); Z96.652 Presence of left artificial knee joint; R40.2412 Glasgow coma scale score 13-15, at arrival to emergency department; F17.290 Nicotine dependence, other tobacco product, uncomplicated; R06.09 Other forms of dyspnea